=== PATIENT | male | born 1935 | race Caucasian/White ===

== ENCOUNTER 2019-04-26 10:10 | Outpatient (CLI) | payer MEDICARE, OTHER, SELFPAY ==
--- NOTE | 2019-04-26 10:18 | FL_ITS ---
WS: [id number] FL barium swallow modifd [id number] REASON FOR EXAM: Other dysphagia FLUOROSCOPY TIME: 3.7 minutes FINDINGS: Fluoroscopy was performed for speech pathology please see their workup for details. A trace of microaspiration was identified. FL/FL barium swallow modifd [id number] IMPRESSION: Trace of microaspiration.
== END 2019-04-26 10:11 | disposition home or self-care (01) ==
PROVIDERS: Family Provider Family Medicine; PCP Family Medicine; Visit Provider Family Medicine
DX: R13.10 Dysphagia, unspecified (principal)
CPT/HCPCS: 74230; 92611

== ENCOUNTER 2019-08-24 09:48 | Outpatient (RCR) | payer MEDICARE, OTHER, SELFPAY | END 2019-09-09 23:59 | disposition home or self-care (01) | LOC: SPT 09:48 | PROVIDERS: PCP Family Medicine; Visit Provider Family Medicine | DX: G89.29 Other chronic pain (principal); M25.512 Pain in left shoulder | CPT/HCPCS: 97110; 97161 ==

== ENCOUNTER 2019-09-10 06:00 | Outpatient (RCR) | payer MEDICARE, OTHER, SELFPAY | END 2019-10-10 23:59 | disposition home or self-care (01) | LOC: SPT 06:00 | PROVIDERS: PCP Family Medicine; Visit Provider Family Medicine | DX: G89.29 Other chronic pain (principal); M25.512 Pain in left shoulder | CPT/HCPCS: 97110 ==

== ENCOUNTER 2019-10-24 17:28 | Outpatient (RCR) | payer MEDICARE, OTHER, SELFPAY | END 2019-11-09 23:59 | disposition home or self-care (01) | LOC: SPT 17:28 | PROVIDERS: PCP Family Medicine; Visit Provider Family Medicine | DX: G89.29 Other chronic pain (principal); M25.512 Pain in left shoulder | CPT/HCPCS: 97110 ==

== ENCOUNTER 2019-11-10 06:00 | Outpatient (RCR) | payer MEDICARE, OTHER, SELFPAY | END 2019-12-10 23:59 | disposition home or self-care (01) | LOC: SPT 06:00 | PROVIDERS: PCP Family Medicine; Visit Provider Family Medicine | DX: G89.29 Other chronic pain (principal); M25.512 Pain in left shoulder | CPT/HCPCS: 97110 ==

== ENCOUNTER → 2020-01-24 07:49 | Outpatient (BNVA) | payer MEDICARE, OTHER, SELFPAY | PROVIDERS: PCP Family Medicine; Visit Provider Family Medicine | DX: I10 Essential (primary) hypertension (principal); E78.5 Hyperlipidemia, unspecified; R35.1 Nocturia | CPT/HCPCS: 80053; 80061; 84153; 85025 ==

== ENCOUNTER 2020-02-07 10:45 | Outpatient (CLI) | payer MEDICARE, OTHER, SELFPAY ==
--- NOTE | 2020-02-07 11:00 | USCV_ITS ---
Tarik Pink Age: 84 Gender: M : 1935 Exam Date: 02/07/2020 11:06 Ordering Phys: Maria Alejandra Bliss DO Technologist: Torie Alexander Exam Location: [facility] [place] Indication: SOB BP: 120 / 74 HR: 90 Rhythm: Sinus Technical Quality: Very technically difficult study MEASUREMENTS (Male / Female) Normal Values 2D ECHO LV Diastolic Diameter PLAX 4.0 cm 4.2 - 5.9 / 3.9 - 5.3 cm LV Systolic Diameter PLAX 2.5 cm LV Chamber Size 3.9 cm IVS Diastolic Thickness 1.5 cm 0.6 - 1.0 / 0.6 - 0.9 cm IVS Systolic Thickness 1.9 cm LVPW Diastolic Thickness 1.3 cm 0.6 - 1.0 / 0.6 - 0.9 cm LVPW Systolic Thickness 1.8 cm RV Chamber Size 2.5 cm LVOT Diameter 2.0 cm LV Ejection Fraction 2D Teich 66.5 % LV Ejection Fraction MOD 2C 70.8 % LV Ejection Fraction 2C AL 70.3 % LA Diameter 4.2 cm LA Width 4.1 cm LA Height 5.4 cm RA Width 3.5 cm RA Height 5.2 cm Aorta at Sinotubular Diameter 3.1 cm M-MODE LV Diastolic Diameter MM 5.5 cm 4.2 - 5.9 / 3.9 - 5.3 cm LV Systolic Diameter MM 4.9 cm LV Ejection Fraction MM Teich 23.8 % IVS Diastolic Thickness MM 1.1 cm 0.6 - 1.0 / 0.6 - 0.9 cm IVS Systolic Thickness MM 1.2 cm LVPW Diastolic Thickness MM 1.4 cm 0.6 - 1.0 / 0.6 - 0.9 cm LVPW Systolic Thickness MM 1.8 cm RV Diastolic Diameter MM 1.3 cm Aortic Annulus Diameter 4.2 cm LA Ao Ratio MM 1.2 MV E Point Septal Separation 1.0 cm DOPPLER AV Peak Velocity 177.0 cm/s LVOT Peak Velocity 81.3 cm/s AV Area Cont Eq vti 2.3 cm squared AV Area Cont Eq pk 1.5 cm squared MV Area PHT 5.0 cm squared Mitral E to A Ratio 0.5 MV E' Velocity 41.5 cm/s Mitral E to MV E' Ratio 11.5 Mitral E to LV E' Lateral Ratio 11.0 Mitral E to LV E' Septal Ratio 12.1 TR Peak Velocity 146.1 cm/s TR Peak Gradient 8.5 mmHg TR Mean Velocity 90.6 cm/s TR Mean Gradient 3.9 mmHg TR Velocity Time Integral 33.6 cm TV Peak E Velocity 69.0 cm/s Right Atrial Pressure 3.0 mmHg Pulmonary Artery Systolic Pressu 11.5 mmHg PV Peak Velocity 67.0 cm/s RV Acceleration Time 0.1 s RV Ejection Time 0.4 s RV AcT/ET 0.3 FINDINGS Left Ventricle Normal left ventricular cavity size. Low normal left ventricular systolic function. Left ventricular ejection fraction is estimated at 50-55 %. There is mild hypokinesis of apical septal wall. Global left ventricular hypokinesis. Grade I diastolic dysfunction (abnormal relaxation filling pattern), normal to mildly elevated filling pressures. Right Ventricle Normal right ventricular size and systolic function. Right ventricular systolic pressure 11.5 mmHg. Right Atrium Probably mildly increased right atrial size. Left Atrium Mildly increased left atrial size. Mitral Valve Moderate mitral annular calcification. Thickened mitral valve. No mitral valve stenosis. Mild mitral valve regurgitation. Aortic Valve Aortic valve not well visualized. No aortic valve stenosis. Trace aortic valve regurgitation. Tricuspid Valve Structurally normal tricuspid valve. Trace tricuspid valve regurgitation. Pulmonic Valve Pulmonic valve not well visualized. Pericardium No pericardial effusion. Aorta Normal size aortic root and proximal ascending aorta. Normal- sized inferior vena cava. CONCLUSIONS 1. This is a technically very difficult study. 2. Normal left ventricular cavity size. Low normal left ventricular systolic function. Left ventricular ejection fraction is estimated at 50-55 %. There is mild hypokinesis of apical septal wall. Global left ventricular hypokinesis. Grade I diastolic dysfunction (abnormal relaxation filling pattern), normal to mildly elevated filling pressures. 3. Normal right ventricular size and systolic function. 4. Mild mitral valve regurgitation. 5. When compared to previous echocardiogram dated 10/26/2017, left ventricular systolic function seems to have improved. Gay Vanegas MD (Electronically Signed) Final Date: 08 February 2020 20:18 S
== END 2020-02-07 10:46 | disposition home or self-care (01) ==
LOC: US 10:46
PROVIDERS: PCP Family Medicine; Visit Provider Family Medicine
DX: I34.0 Nonrheumatic mitral (valve) insufficiency (principal); R06.02 Shortness of breath
CPT/HCPCS: 93306

== ENCOUNTER → 2020-03-13 08:01 | Outpatient (BNVA) | payer MEDICARE, OTHER, SELFPAY | PROVIDERS: PCP Family Medicine; Visit Provider Family Medicine | DX: E78.5 Hyperlipidemia, unspecified (principal) | CPT/HCPCS: 80053 ==

== ENCOUNTER → 2020-04-12 08:00 | Outpatient (BNVA) | payer MEDICARE, OTHER, SELFPAY | PROVIDERS: PCP Family Medicine; Visit Provider Family Medicine | DX: E78.5 Hyperlipidemia, unspecified (principal); I10 Essential (primary) hypertension | CPT/HCPCS: 80061 ==

== ENCOUNTER → 2020-04-19 12:59 | Outpatient (BNVA) | payer MEDICARE, OTHER, SELFPAY | PROVIDERS: PCP Family Medicine; Visit Provider Nurse Practitioner Family | DX: Z01.812 Encounter for preprocedural laboratory examination (principal); Z20.828 Contact with and (suspected) exposure to other viral communicable diseases | CPT/HCPCS: 87635 ==

== ENCOUNTER → 2020-11-08 07:54 | Outpatient (BNVA) | payer MEDICARE, OTHER, SELFPAY | PROVIDERS: PCP Family Medicine; Visit Provider Family Medicine | DX: I10 Essential (primary) hypertension (principal); R35.1 Nocturia; E78.5 Hyperlipidemia, unspecified | CPT/HCPCS: 80053; 80061; 84153; 85025 ==

== ENCOUNTER → 2020-11-12 09:29 | Outpatient (BNVA) | payer MEDICARE, OTHER, SELFPAY | PROVIDERS: PCP Family Medicine; Visit Provider Family Medicine | DX: I10 Essential (primary) hypertension (principal); E74.39 Other disorders of intestinal carbohydrate absorption; E78.5 Hyperlipidemia, unspecified; Z79.899 Other long term (current) drug therapy | CPT/HCPCS: 83036; 85025 ==

== ENCOUNTER 2021-01-16 21:17 | Emergency (ER) | payer MEDICARE, OTHER, SELFPAY ==
--- NOTE | 2021-01-16 21:22 | ECG_ITS ---
[facility] Test Date: 2021-01-16 Pat Name: Tarik Pink Department: Room: Gender: Male [employer] Officer: : 1935 Requested By: Tamar Taylor Order Number: [id number] Khadar MD: Gay Vanegas M.D. Measurements Intervals [place] Rate: 118 P: -70 IA: 133 QRS: 89 QRSD: 115 T: 42 QT: 339 QTc: 476 Interpretive Statements SINUS TACHYCARDIA WITH OCCASIONAL VENTRICULAR PREMATURE COMPLEXES WITH OCCASIONAL SUPRAVENTRICULAR PREMATURE COMPLEXES MODERATE INTRAVENTRICULAR CONDUCTION DELAY [110+ ms QRS DURATION] No previous ECG available for comparison Electronically Signed On 01-17-2021 4:15:10 HOT STAMP OPERATOR by Gay Vanegas M.D. [id number]
[2021-01-16 21:40] VITALS: BP 105/52; PULSE 132; RESP 19; TEMP 37.1; O2SAT 93; BMI 32.3
--- NOTE | 2021-01-16 21:45 | CTR_ITS ---
PROCEDURE INFORMATION: Exam: CT Head Without Contrast Exam date and time: 01/16/2021 9:45 PM Age: 85 years old Clinical indication: Pain and injury or trauma; Fall; Abrasion and blunt trauma (contusions or hematomas); Forehead; Patient HX: Patient passed out on the toilet straining from a painful bm and fell striking head onto floor. Large abrasion to RT frontal region. C/O headache. Patient states his bm was full of blood. C/O abdominal discomfort. TECHNIQUE: Imaging protocol: Computed tomography of the head without contrast. Total images: 210 Radiation optimization: All CT scans at this facility use at least one of these dose optimization techniques: automated exposure control; mA and/or kV adjustment per patient size (includes targeted exams where dose is matched to clinical indication); or iterative reconstruction. COMPARISON: XA FL barium swallow modifd [id number] 04/26/2019 11:37 AM RADIATION DOSE METRICS: Total DLP (mGy-cm): 949.04 FINDINGS: Brain: No evidence of acute intracranial pathologic process, hemorrhage, or trauma. No visible cerebral edema. 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 Evidence of tiny micro antecedent basal ganglia lacunar infarctions. Antecedent lacunar infarction anterior limb left external capsule. Antecedent lacunar infarctions of the deep white matter centrum semi ovale. Cerebral arteriosclerosis. No hyperdense MCA or insular ribbon sign. No mass effect. No midline shift. Advanced cerebral and cerebellar atrophy with ventricular dilatation greater than that anticipated for patient's chronological age. Cerebral ventricles: No ventriculomegaly. Paranasal sinuses: Visualized sinuses are unremarkable. No fluid levels. Mastoid air cells: Visualized mastoid air cells are well aerated. Bones/joints: Vertebral dolichoectasia. Soft tissues: Unremarkable. CT/CT head wo con* [id number] IMPRESSION: No evidence of acute intracranial pathologic process, hemorrhage, or trauma.
--- NOTE | 2021-01-16 21:58 | ED_ITS ---
HPI - Syncope General: Chief Complaint: Syncope Stated Complaint: BM Blood\Passed Out Time Seen by Provider: 01/16/21 21:30 Source: patient Mode of arrival: ambulatory Limitations: no limitations History of Present Illness: HPI narrative: 85-year-old male who states that he was on the toilet roughly an hour ago and had a large bloody bowel movement. States he felt lightheaded and passed out states he passed out for about 10 to 15 minutes he did strike his head on the floor when he passed out has abrasion to his right head states the bleeding is slowed but still having some bright red blood he states he had an upper GI bleed a few years back denies any vomiting or diarrhea denies any worsening improving factors. He is not on any blood thinners Associated symptoms: Deny fever(s) or headache(s) Review of Systems Const: Denies: fever(s), chills, body aches or change in appetite Eyes: Denies: blurry vision or eye discomfort ENMT: Denies: throat pain or dental pain Card: Reports: syncope Resp: Denies: dyspnea GI: Reports: hematochezia : Denies: dysuria Musc: Denies: neck pain or back pain Skin/Breast: Denies: rash Neuro: Denies: headache(s) Psych: Denies: depression Marvin/Lymph: Denies: easy bruising All/Imm: Denies: urticaria PFSH ED PFSH: Medical History (Updated 01/17/21 @ 02:01 by Tamar Taylor MD) Enrolled in chronic care management H/O [place] spotted fever Hyperlipidemia Hypertension Mitral regurgitation Prediabetes Surgical History H/O cataract extraction No pertinent past surgical history Family History Other CAD (coronary artery disease) Cancer Social History Smoking and tobacco status: former smoker Alcohol intake: current Alcohol intake frequency: few times a week Alcohol type: beer Lives independently: Yes Household members: spouse Marital status: Current occupational status: retired Current gender identity: Male Physical Exam Const: COMMON NORMALS: no acute distress, patient oriented x3 and healthy appearing HENMT: COMMON NORMALS: normocephalic HEAD & SCALP: normocephalic OTHER: abrasion to right forehead Eye: COMMON NORMALS: Equal, round and reactive pupils present and EOMs intact bilaterally PUPIL: Yes Equal, round and reactive pupils present Neck/C-Spine: COMMON NORMALS: full ROM and supple Chest: COMMONS NORMALS: normal inspection of the chest and normal palpation of entire chest wall Resp: COMMON NORMALS: normal respiratory effort, No retractions, No use of accessory muscles and clear to auscultation bilaterally AUSCULTATION: clear to auscultation bilaterally Cardio: COMMON NORMALS: regular rate, regular rhythm and No murmurs present (Cardio) RATE: regular rate RHYTHM: regular rhythm GI: COMMON NORMALS: Normal to inspection, nondistended, normoactive bowel sounds present, Soft to palpation, non-tender and no masses PALPATION: Yes Soft to palpation OTHER: Hemoccult positive with slight bright red blood Extremity: COMMON NORMALS: normal to inspection and full ROM Neuro: COMMON NORMALS: patient oriented x3, moves all extremities and no focal motor deficits Psych: COMMON NORMALS: mental status grossly normal, Normal thought process present and cooperative THOUGHT PROCESS: Normal thought process present Skin: COMMON NORMALS: no rashes or lesions noted and no wounds GENERAL SKIN EXAM: no rashes or lesions noted Course Vital Signs: Vital signs: Vital Signs Temperature 98.7 F 01/17/21 03:06 Pulse Rate 112 H 01/17/21 05:04 Respiratory Rate 16 01/17/21 01:47 Blood Pressure 106/78 01/17/21 05:04 Pulse Oximetry 93 01/17/21 05:04 MDM - Syncope MDM Narrative: Medical decision making narrative: Patient presents here with lower GI bleeding and a large bloody bowel movement at home and another large bloody bowel movement here he had a syncopal event at home here he gets orthostatic with standing blood pressure dropped to 83/56 with standing here and had a near syncopal event with diaphoresis patient's hemoglobin dropped from 15- 12.4 will transfuse him [address] shows active bleeding will transfer to [facility] for higher level of care with GI capability and also bed availability as we have no ICU beds. Pt transfered to [facility] Lab Data: Labs: Lab Results 01/16/21 01/16/21 01/16/21 21:26 22:06 22:06 WBC 20.5 10^3/uL H 10 ^3/uL (4.0-10.0) RBC 5.11 10^6/uL 10^6 /uL (4.1-5.3) Hgb 15.0 g/dL g/dL (11.7-16.6) Hct 47.5 % % (42.0-52.0) MCV 93.0 fl fl (80-94) MCH 29.4 pg pg (28.0-34.0) MCHC 31.6 g/dL g/dL (30.0-36.0) RDW 13.9 % % (12.1-15.1) Plt Count 246 10^3/cmm 10^3 /cmm (130-400) MPV 10.0 fL fL (7.4-10.4) Neut % (Auto) 78.8 % % Lymph % (Auto) 12.5 % % [place] % (Auto) 7.2 % % Eos % (Auto) 0.6 % % Baso % (Auto) 0.5 % % Neut # (Auto) 16.10 10^3/uL H 1 0^3/uL (1.8-7.7) Lymph # (Auto) 2.6 10^3/uL 10^3/ uL (0.8-4.8) [place] # (Auto) 1.5 10^3/uL H 10^ 3/uL (0.2-0.9) Eos # (Auto) 0.1 10^3/uL 10^3/ uL (0.0-0.8) Baso # (Auto) 0.1 10^3/uL 10^3/ uL (0.0-0.1) Nucleated RBC % (a uto) 0 % % Nucleated RBCs # 0.0 /100WBC /100W BC PT 14.30 SECONDS SEC ONDS (12.1-14.9) INR 1.07 (0.8-1.2) Specimen Type Sample Site ABG pH ABG pCO2 ABG pO2 ABG HCO3 ABG Base Excess Issa Test Hematocrit O2 Delivery Device Chemistry Physics Teacher ID Sodium Potassium Chloride Carbon Dioxide Anion Gap BUN Creatinine GFR Calculation Glucose Calculated Osmolal ity Lactate Calcium Total Bilirubin AST ALT Alkaline Phosphata se Total Protein Albumin Globulin Blood Type O Negative Rho(D) Type Negative Antibody Screen Negative Crossmatch See Detail 01/16/21 01/16/21 01/16/21 22:06 23:45 23:45 WBC RBC Hgb 12.4 g/dL g/dL (11.7-16.6) Hct 38.0 % L % (42.0-52.0) MCV MCH MCHC RDW Plt Count MPV Neut % (Auto) Lymph % (Auto) [place] % (Auto) Eos % (Auto) Baso % (Auto) Neut # (Auto) Lymph # (Auto) [place] # (Auto) Eos # (Auto) Baso # (Auto) Nucleated RBC % (a uto) Nucleated RBCs # PT INR Specimen Type Sample Site ABG pH ABG pCO2 ABG pO2 ABG HCO3 ABG Base Excess Issa Test Hematocrit O2 Delivery Device Chemistry Physics Teacher ID Sodium 138 mmol/L mmol/L (136-145) Potassium 4.4 mmol/L mmol/L (3.5-5.1) Chloride 103 mmol/L mmol/L (98-107) Carbon Dioxide 25 mmol/L mmol/L (22-29) Anion Gap 14.4 (5-19) BUN 21 mg/dL mg/dL (8-23) Creatinine 1.2 mg/dL mg/dL (0.7-1.2) GFR Calculation Not Reportable Glucose 174 mg/dL H mg/dL (65-115) Calculated Osmolal ity 293 mOsm/kg mOsm/ kg (285-295) Lactate 3.0 mmol/L H mmol /L (0.5-2.2) Calcium 8.3 mg/dL L mg/dL (8.5-10.5) Total Bilirubin 0.2 mg/dL mg/dL (0.15-1.2) AST 20 U/L U/L (0-40) ALT < 5 U/L U/L (0-41) Alkaline Phosphata se 56 IU/L IU/L (40-130) Total Protein 6.4 g/dL L g/dL (6.6-8.7) Albumin 3.5 g/dL g/dL (3.5-5.2) Globulin 2.9 g/dL g/dL (1.3-4.6) Blood Type Rho(D) Type Antibody Screen Crossmatch 01/17/21 01/17/21 02:11 02:59 WBC RBC Hgb 14.4 g/dL g/dL (11.7-16.6) Hct 43.9 % % (42.0-52.0) MCV MCH MCHC RDW Plt Count MPV Neut % (Auto) Lymph % (Auto) [place] % (Auto) Eos % (Auto) Baso % (Auto) Neut # (Auto) Lymph # (Auto) [place] # (Auto) Eos # (Auto) Baso # (Auto) Nucleated RBC % (a uto) Nucleated RBCs # PT INR Specimen Type Arterial Sample Site Radial, right ABG pH 7.41 (7.35-7.45) ABG pCO2 38.5 mmHg mmHg (35-45) ABG pO2 68.0 mmHg L mmHg (80.0-100.0) ABG HCO3 24.5 mmol/L mmol/ L (22-26) ABG Base Excess 0.0 mmol/L mmol/L (-2.0-2.0) Issa Test Pos Hematocrit 40.6 % L % (42-52) O2 Delivery Device Room air Chemistry Physics Teacher ID Buttr Sodium Potassium Chloride Carbon Dioxide Anion Gap BUN Creatinine GFR Calculation Glucose Calculated Osmolal ity Lactate Calcium Total Bilirubin AST ALT Alkaline Phosphata se Total Protein Albumin Globulin Blood Type Rho(D) Type Antibody Screen Crossmatch Imaging Data^: CT Head: Radiologist's impression: [employer] [address] [address] Scan Report Signed with Addenda Patient: Tarik Pink Unit #: [id number] : 1935 Age/Sex: 85 / M ADM Date: 01/16/21 Loc: ER Room/Bed: Attending Dr: Ordering Provider/Ordering MD: Tamar Taylor MD Date of Service: 01/16/21 Procedure(s): CT head wo con* [id number] Accession Number(s): [id number] Report Number: [id number]/CT head wo con* [id number] Bones/joints: No visible fracture. Vertebral artery dolichoectasia. Addendum Dictated By: Nolberto Shirley Addendum Signed By: Nolberto Shirley Signed Date/Time: 01/16/21 232 9 Addendum Cosigned By: PROCEDURE INFORMATION: Exam: CT Head Without Contrast Exam date and time: 01/16/2021 9:45 PM Age: 85 years old Clinical indication: Pain and injury or trauma; Fall; Abrasion and blunt trauma (contusions or hematomas); Forehead; Patient HX: Patient passed out on the toilet straining from a painful bm and fell striking head onto floor. Large abrasion to RT frontal region. C/O headache. Patient states his bm was full of blood. C/O abdominal discomfort. TECHNIQUE: Imaging protocol: Computed tomography of the head without contrast. Total images: 210 Radiation optimization: All CT scans at this facility use at least one of these dose optimization techniques: automated exposure control; mA and/or kV adjustment per patient size (includes targeted exams where dose is matched to clinical indication); or iterative reconstruction. COMPARISON: XA FL barium swallow modifd [id number] 04/26/2019 11:37 AM RADIATION DOSE METRICS: Total DLP (mGy-cm): 949.04 FINDINGS: Brain: No evidence of acute intracranial pathologic process, hemorrhage, or trauma. No visible cerebral edema. 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 Evidence of tiny micro antecedent basal ganglia lacunar infarctions. Antecedent lacunar infarction anterior limb left external capsule. Antecedent lacunar infarctions of the deep white matter centrum semi ovale. Cerebral arteriosclerosis. No hyperdense MCA or insular ribbon sign. No mass effect. No midline shift. Advanced cerebral and cerebellar atrophy with ventricular dilatation greater than that anticipated for patient's chronological age. Cerebral ventricles: No ventriculomegaly. Paranasal sinuses: Visualized sinuses are unremarkable. No fluid levels. Mastoid air cells: Visualized mastoid air cells are well aerated. Bones/joints: Vertebral dolichoectasia. Soft tissues: Unremarkable. CT/CT head wo con* [id number] IMPRESSION: No evidence of acute intracranial pathologic process, hemorrhage, or trauma. Dictated By: Nolberto Shirley Signed By: Nolberto Shirley Signed Date/Time: 01/16/218 DD/ 44 CXR: Attestation: I personally reviewed and interpreted this imaging study as follows: Radiologist's impression: [facility] [address] [place] [address] XRay Report Signed with Addenda Patient: Tarik Pink Unit #: [id number] : 1935 804 Age/Sex: 85 / M ADM Date: 01/16/21 Loc: ER Room/Bed: Attending Dr: Ordering Provider/Ordering MD: Tamar Taylor MD Date of Service: 01/16/21 Procedure(s): XR chest 1V portable [id number] Accession Number(s): [id number] Report Number: [id number] ADDENDUM XR/XR chest 1V portable [id number] Impression should read as follows: Grossly nonacute. Addendum Dictated By: Nolberto Shirley Addendum Signed By: Nolberto Shirley Signed Date/Time: 01/16/21 225 8 Addendum Cosigned By: Nonacute. PROCEDURE INFORMATION: Exam: XR Chest Exam date and time: 01/16/2021 10:20 PM Age: 85 years old Clinical indication: Other: Syncope TECHNIQUE: Imaging protocol: XR of the chest. Views: 1 view. Total images: 1 COMPARISON: CR Shoulder 2+ views RIGHT* [id number] 01/30/2016 10:59 AM FINDINGS: Lungs: No grossly visible active interstitial or alveolar airspace disease. Pleural spaces: No grossly visible pleural effusion or pneumothorax. Heart/Mediastinum: Cardiomegaly. Arteriosclerosis. 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 Mild scoliotic curvature of the spine. Other findings: Limited diagnostic quality examination. XR/XR chest 1V portable [id number] IMPRESSION: Grossly Dictated By: Nolberto Shirley Signed By: Nolberto Shirley Signed Date/Time: 01/16/212257 DD/ 19 CT Abd/Pel: Radiologist's impression: [address] [place] [address] CT Scan Report Signed Patient: Tarik Pink Unit #: [id number] : 1935 [id number] Age/Sex: 85 / M ADM Date: 09/29 Loc: ER Room/Bed: Attending Dr: Ordering Provider/Ordering MD: Tamar Taylor MD Date of Service: 01/16/21 Procedure(s): CT abdomen pelvis w con* [id number] Accession Number(s): [id number] Report Number: [id number] PROCEDURE INFORMATION: Exam: CT Abdomen And Pelvis With Contrast Exam date and time: 01/16/2021 9:59 PM Age: 85 years old Clinical indication: Other: Bloody stools; Abdominal pain; Generalized; Patient HX: Patient passed out on the toilet straining from a painful bm and fell striking head onto floor. Large abrasion to RT frontal region. C/O headache. Patient states his bm was full of blood. C/O abdominal discomfort. ; Additional info: Abd pain TECHNIQUE: Imaging protocol: Computed tomography of the abdomen and pelvis with contrast. Radiation optimization: All CT scans at this facility use at least one of these dose optimization techniques: automated exposure control; mA and/or kV adjustment per patient size (includes targeted exams where dose is matched to clinical indication); or iterative reconstruction. Contrast material: VISI 320; Contrast volume: 95 ml; Contrast route: INTRAVENOUS (IV); COMPARISON: CR (CHEST, ) 01/16/2021 10:28 PM RADIATION DOSE METRICS: Total DLP (mGy-cm): 1939.37 FINDINGS: Heart: Moderate calcified coronary artery disease. Liver: Normal. No mass. Gallbladder and bile ducts: Normal. No calcified stones. No ductal dilation. Pancreas: Normal. No ductal dilation. Spleen: Calcified splenic granulomas. Adrenal glands: Normal. No mass. Kidneys and ureters: Normal. No hydronephrosis. Stomach and bowel: Active bleeding in the descending colon with the active bleeding identified over an 11 cm segment of bowel. The bleeding may originate within a posterior diverticulum in the proximal descending colon, axial series 2, image 45, sagittal series 601, image 16. Appendix: No evidence of appendicitis. Intraperitoneal space: Unremarkable. No free air. No significant fluid collection. Vasculature: Calcification of the thoracic aorta and/or great vessels consistent with atherosclerotic vessel disease. Calcification of the abdominal aorta and/or iliac arteries consistent with atherosclerotic vessel disease. Lymph nodes: Unremarkable. No enlarged lymph nodes. Urinary bladder: Unremarkable as visualized. Reproductive: Unremarkable as visualized. Bones/joints: Severe multilevel spine degenerative changes including degenerative disc disease, spondylosis and facet degenerative changes. Soft tissues: Unremarkable. Other findings: Moderate diverticulosis. CT/CT abdomen pelvis w con* [id number] IMPRESSION: Active bleeding in the descending colon with the active bleeding identified over an 11 cm segment of bowel. The bleeding may originate within a posterior diverticulum in the proximal descending colon, axial series 2, image 45, sagittal series 601, image 16. Dictated By: Yifan Parsons MD Signed By: Yifan Parsons MD Signed Date/Time: 01/16/21 2333 DD/ 58 EKG Data^: EKG 1: Attestation: I personally reviewed and interpreted this EKG as follows: EKG interpretation date: 01/16/21 EKG interpretation time: 21:37 Interpretation: sinus tach hr [address] or t wave abnormalities qrs 115 qtc 49 Critical Care Time Critical Care Time: Critical Care Time: Yes Total Critical Care Time: 36 Attestation: The high probability of a clinically significant, sudden or life threatening deterioration of the patient's [] system(s) required my full and direct attention, intervention and personal management. The critical care time is as shown. This time is in addition to time spent performing any reported procedures but includes the following: [x] Data and vital sign review and interpretation [x] Patient assessment, examination and intervention [x] Documentation [x] Medication orders and management Discharge Plan Discharge Patient Disposition: Xfer Short-Term Hosp Clinical Impression: Acute lower gastrointestinal bleeding, Syncope Condition: Stable Referrals: Maria Alejandra Bliss DO [Primary Care Provider] - Coding Level of Care Code ED Salesperson [employer] for Chg Fwd Exam Comprehensive
[2021-01-16 22:13] VITALS: BP 88/71; PULSE 111; O2SAT 95
[2021-01-16] MEDS: lactated ringers 1,000 ML 999 ML IV (22:16)
[2021-01-16 22:19] LABS: Basophils # 0.1 10^3/uL (0.0-0.1); Basophils % 0.5 %; Eosinophils # 0.1 10^3/uL (0.0-0.8); Eosinophils % 0.6 %; Hematocrit 47.5 % (42.0-52.0); Lymphocytes # 2.6 10^3/uL (0.8-4.8); Lymphocytes % 12.5 %; Mean Corpuscular HGB Conc 31.6 g/dL (30.0-36.0); Mean Corpuscular Hemoglobin 29.4 pg (28.0-34.0); Monocytes # 1.5 10^3/uL (0.2-0.9); Monocytes % 7.2 %; Neutrophils % 78.8 %; Nucleated Red Blood Cells % 0 %; Platelet Count 246 10^3/cmm (130-400); Red Blood Count 5.11 10^6/uL (4.1-5.3); Red Cell Distribution Width 13.9 % (12.1-15.1); White Blood Count 20.5 10^3/uL (4.0-10.0)
--- NOTE | 2021-01-16 22:20 | XRR_ITS ---
Nonacute. PROCEDURE INFORMATION: Exam: XR Chest Exam date and time: 01/16/2021 10:20 PM Age: 85 years old Clinical indication: Other: Syncope TECHNIQUE: Imaging protocol: XR of the chest. Views: 1 view. Total images: 1 COMPARISON: CR Shoulder 2+ views RIGHT* [id number] 01/30/2016 10:59 AM FINDINGS: Lungs: No grossly visible active interstitial or alveolar airspace disease. Pleural spaces: No grossly visible pleural effusion or pneumothorax. Heart/Mediastinum: Cardiomegaly. Arteriosclerosis. 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 Mild scoliotic curvature of the spine. Other findings: Limited diagnostic quality examination. XR/XR chest 1V portable [id number] IMPRESSION: Grossly
[2021-01-16 22:33] LABS: INR 1.07 (0.8-1.2)
[2021-01-16 22:39] LABS: Alanine Aminotransferase < 5 U/L (0-41); Albumin Level 3.5 g/dL (3.5-5.2); Alkaline Phosphatase 56 IU/L (40-130); Anion Gap 14.4 (5-19); Aspartate Amino Transferase 20 U/L (0-40); Blood Urea Nitrogen 21 mg/dL (8-23); Calcium 8.3 mg/dL (8.5-10.5); Carbon Dioxide 25 mmol/L (22-29); Chloride 103 mmol/L (98-107); Globulin 2.9 g/dL (1.3-4.6); Glucose 174 mg/dL (65-115); Osmolality Calculated 293 mOsm/kg (285-295); Potassium 4.4 mmol/L (3.5-5.1); Sodium 138 mmol/L (136-145); Total Bilirubin 0.2 mg/dL (0.15-1.2); Total Protein 6.4 g/dL (6.6-8.7)
[2021-01-16] MEDS: iodixanol 320 mg/mL 100mL Btl IV (22:54)
[2021-01-16 23:54] VITALS: BP 128/90; PULSE 116; O2SAT 93
[2021-01-17] VITALS (17 sets, daily range): BP systolic 106–146; BP diastolic 75–118; PULSE 103–115; RESP 16; TEMP 36.7–37.1; O2SAT 93–97
[2021-01-17 00:29] LABS: Hemoglobin 12.4 g/dL (11.7-16.6)
[2021-01-17 02:23] LABS: ABG PCO2 38.5 mmHg (35-45); ABG PH Result 7.41 (7.35-7.45); Arterial Blood Gas Hematocrit 40.6 % (42-52); Blood Gas Allen Test Pos; Blood Gas Sample Site Radial, right; Blood Gas Sample Type Arterial; HCO3 ABG 24.5 mmol/L (22-26); Oxygen Device ROOM AIR
[2021-01-17] MEDS: sodium chloride 0.9% 50 ML IV (02:42)
[2021-01-17 03:05] LABS: Hematocrit 43.9 % (42.0-52.0); Hemoglobin 14.4 g/dL (11.7-16.6)
== END 2021-01-17 06:19 | disposition short-term general hospital (02) ==
PROVIDERS: Emergency Provider Emergency Medicine; PCP Family Medicine
DX: R55 Syncope and collapse (principal); K92.2 Gastrointestinal hemorrhage, unspecified; E78.5 Hyperlipidemia, unspecified; I10 Essential (primary) hypertension
CPT/HCPCS: 36415; 36430; 36600; 70450; 71045; 74177; 80053; 82803; 83605; 85014; 85018; 85025; 85610; 86850; 86900; 86920; 87040; 93005; 96360; 96361; 99291; P9016; Q9967

== ENCOUNTER → 2021-02-19 13:48 | Outpatient (BNVA) | payer MEDICARE, OTHER, SELFPAY | PROVIDERS: PCP Family Medicine; Visit Provider Family Medicine | DX: K92.2 Gastrointestinal hemorrhage, unspecified (principal) | CPT/HCPCS: 85025 ==

== ENCOUNTER → 2021-10-02 12:49 | Outpatient (BNVA) | payer MEDICARE, OTHER, SELFPAY | PROVIDERS: PCP Family Medicine; Visit Provider Internal Medicine | DX: I10 Essential (primary) hypertension (principal); I34.0 Nonrheumatic mitral (valve) insufficiency; E78.5 Hyperlipidemia, unspecified; E74.39 Other disorders of intestinal carbohydrate absorption; Z87.891 Personal history of nicotine dependence | CPT/HCPCS: 99214 ==

== ENCOUNTER → 2022-01-14 10:00 | Outpatient (BNVA) | payer MEDICARE, OTHER, SELFPAY | PROVIDERS: PCP Family Medicine; Visit Provider Family Medicine | DX: I10 Essential (primary) hypertension (principal); R73.03 Prediabetes; E78.5 Hyperlipidemia, unspecified; E78.2 Mixed hyperlipidemia | CPT/HCPCS: 80053; 80061; 83036; 85025 ==

== ENCOUNTER → 2022-04-03 14:58 | Outpatient (BNVA) | payer MEDICARE, OTHER, SELFPAY | PROVIDERS: PCP Family Medicine; Visit Provider Internal Medicine | DX: I10 Essential (primary) hypertension (principal); E74.39 Other disorders of intestinal carbohydrate absorption; E78.2 Mixed hyperlipidemia; I34.0 Nonrheumatic mitral (valve) insufficiency; Z87.891 Personal history of nicotine dependence | CPT/HCPCS: 99214 ==

== ENCOUNTER → 2022-07-15 09:25 | Outpatient (BNVA) | payer MEDICARE, OTHER, SELFPAY | PROVIDERS: PCP Family Medicine; Visit Provider Family Medicine | DX: I10 Essential (primary) hypertension (principal); R06.09 Other forms of dyspnea | CPT/HCPCS: 80053; 83880 ==

== ENCOUNTER 2022-08-04 13:55 | Outpatient (CLI) | payer MEDICARE, OTHER, SELFPAY ==
--- NOTE | 2022-08-04 14:15 | USCV_ITS ---
Tarik Pink Age: 87 Gender: M : 1935 Exam Date: 08/04/2022 14:34 Ordering Phys: Maria Alejandra Bliss DO Technologist: CT Exam Location: [facility] [place] Indication: mr BP: 116 / 74 HR: 75 Rhythm: Sinus Technical Quality: Adequate MEASUREMENTS (Male / Female) Normal Values 2D ECHO LVOT Diameter 2.3 cm LV Ejection Fraction MOD 2C 42.6 % LV Ejection Fraction 2C AL 39.3 % LA Diameter 4.9 cm Aorta at Sinotubular Diameter 2.5 cm IVC Diameter 2.3 cm M-MODE Aortic Annulus Diameter 4.0 cm LA Ao Ratio MM 1.4 DOPPLER AV Peak Velocity 157.0 cm/s LVOT Peak Velocity 110.0 cm/s AV Area Cont Eq vti 3.6 cm squared AV Area Cont Eq pk 2.9 cm squared MV Peak Velocity 136.0 cm/s MV Area PHT 2.7 cm squared MV E' Velocity 67.0 cm/s Mitral E to MV E' Ratio 12.6 Mitral E to LV E' Lateral Ratio 13.1 Mitral E to LV E' Septal Ratio 12.2 TR Peak Velocity 131.0 cm/s TR Peak Gradient 6.9 mmHg TV Peak E Velocity 79.0 cm/s Right Atrial Pressure 5.0 mmHg Pulmonary Artery Systolic Pressu 11.9 mmHg FINDINGS Left Ventricle Normal left ventricular size and systolic function, EF 55 %. (visual). No regional wall motion abnormalities. Right Ventricle The right ventricle is normal in size and function. Right Atrium Mildly increased right atrial size. Left Atrium Mildly increased left atrial size. Mitral Valve Thickened mitral valve. Moderate mitral annular calcification. Aortic Valve Thickened aortic valve. Tricuspid Valve No gross abnormalities noted Pulmonic Valve Pulmonic valve not well visualized. Pericardium Normal pericardium without effusion. Aorta Normal aortic annulus size. IVC The inferior vena cava appears normal. CONCLUSIONS Normal left ventricular size and systolic function, EF 55 %. (visual). No regional wall motion abnormalities. Possible biatrial enlargement. Thickened mitral valve. Moderate mitral annular calcification. Thickened aortic valve with features of aortic valve sclerosis There is no pericardial effusion. There are no intracardiac masses. Technically difficult study because of the poor ultrasonic window. Comparison with the previous study is difficult because of the difference in the technical quality. Dr Willis Huber MD FACC (Electronically Signed) Final Date: 08 August 2022 19:46 S
== END 2022-08-04 13:56 | disposition home or self-care (01) ==
PROVIDERS: PCP Family Medicine; Visit Provider Family Medicine
DX: I34.0 Nonrheumatic mitral (valve) insufficiency (principal); I35.8 Other nonrheumatic aortic valve disorders
CPT/HCPCS: 93306

== ENCOUNTER → 2022-10-21 14:47 | Outpatient (BNVA) | payer MEDICARE, OTHER, SELFPAY | PROVIDERS: PCP Family Medicine; Visit Provider Internal Medicine | DX: I10 Essential (primary) hypertension (principal); E74.39 Other disorders of intestinal carbohydrate absorption; E78.2 Mixed hyperlipidemia; I34.0 Nonrheumatic mitral (valve) insufficiency; Z87.891 Personal history of nicotine dependence; R06.00 Dyspnea, unspecified | CPT/HCPCS: 99214 ==

== ENCOUNTER → 2023-01-19 15:29 | Outpatient (BNVA) | payer MEDICARE, OTHER, SELFPAY | PROVIDERS: PCP Family Medicine; Visit Provider Family Medicine | DX: I10 Essential (primary) hypertension (principal); Z13.6 Encounter for screening for cardiovascular disorders; R73.03 Prediabetes; R35.1 Nocturia | CPT/HCPCS: 80053; 80061; 83036; 84153; 85025 ==

== ENCOUNTER 2023-04-12 12:31 | Emergency (ER) | payer MEDICARE, OTHER, SELFPAY ==
[2023-04-12 13:31] VITALS: BP 148/66; PULSE 81; RESP 16; TEMP 36.9; O2SAT 91; BMI 32.3
--- NOTE | 2023-04-12 13:46 | XRR_ITS ---
PROCEDURE INFORMATION: Exam: XR Chest Exam date and time: 04/12/2023 2:00 PM Age: 87 years old Clinical indication: Cough and shortness of breath; Patient HX: Cough; Chest congestion; Ex smoker TECHNIQUE: Imaging protocol: Radiologic exam of the chest. Views: 2 views. COMPARISON: CR XR chest 1V portable [id number] 01/16/2021 10:28 PM FINDINGS: Lungs: No consolidation. Pleural spaces: No pleural effusion. No pneumothorax. Heart/Mediastinum: No cardiomegaly. Bones/joints: Visualized osseous structures are intact. XR/XR chest 2V* [id number] IMPRESSION: No acute findings.
--- NOTE | 2023-04-12 13:46 | W.ED.URI ---
HPI - URI/Sore Throat General: Chief Complaint: Upper Respiratory Infection Stated Complaint: cough, chest cold? Time Seen by Provider: 04/12/23 13:38 History of Present Illness: 87-year-old male patient comes in with persistent cough and chest tightness for the last 3 weeks. Patient states that about 3 weeks ago he thinks he might run a fever and had a mild infection at this time. Since then patient has had a persistent dry cough with occasional phlegm production. Patient appears nontoxic. Skin is color is pink warm and dry. Patient takes carvedilol and lisinopril routinely for high blood pressure and arrhythmia. Spouse believes his atrial fibs. Patient is hard of hearing and spouse answers plenty of questions for him. Review of Systems General: Reports: 10 or more systems reviewed and unremarkable except in HPI and below Resp: Reports: non-productive cough PFSH ED PFSH: Medical History Lower GI bleed Prediabetes Mitral regurgitation H/O [place] spotted fever Hyperlipidemia Enrolled in chronic care management Hypertension Surgical History H/O cataract extraction No pertinent past surgical history Family History Other CAD (coronary artery disease) Cancer Social History Smoking and tobacco/nicotine status: former use of tobacco/nicotine Alcohol intake: current Alcohol intake frequency: few times a week Alcohol type: beer Substance/Drug Use: never Lives independently: Yes Household members: spouse Marital status: Current occupational status: retired Do you think of yourself as: Straight/Heterosexual Current gender identity: Male Physical Exam Const: COMMON NORMALS: alert HENMT: COMMON NORMALS: normocephalic HEAD & SCALP: normocephalic NOSE: Normal nares present THROAT: posterior oropharynx normal Neck/C-Spine: COMMON NORMALS: full ROM Chest: COMMONS NORMALS: normal inspection of the chest and normal palpation of entire chest wall Resp: COMMON NORMALS: normal respiratory effort and clear to auscultation bilaterally AUSCULTATION: clear to auscultation bilaterally Cardio: COMMON NORMALS: regular rate and regular rhythm RATE: regular rate RHYTHM: regular rhythm GI: COMMON NORMALS: Soft to palpation and non-tender PALPATION: Yes Soft to palpation Back/Pelvis: COMMON NORMALS: thoracic and lumbar spine normal to inspection Extremity: COMMON NORMALS: no pedal edema Neuro: SENSORIUM/ORIENTATION: Yes alert Skin: COMMON NORMALS: turgor normal GENERAL SKIN EXAM: turgor normal Course Vital Signs: Vital signs: Vital Signs Temperature 98.5 F 04/12/23 13:31 Pulse Rate 73 04/12/23 15:26 Respiratory Rate 18 04/12/23 15:26 Blood Pressure 148/66 04/12/23 13:31 Pulse Oximetry 94 04/12/23 15:26 Oxygen Delivery Me thod Room Air 04/12/23 13:31 MDM - URI/Sore Throat Medical Decision Making 87-year-old male patient comes in with a occasional nonproductive cough for the last 3 weeks. Patient reports he might run a fever when this illness started. Since then patient has had some chest discomfort with cough. Patient reports occasional cough up some phlegm. Patient appears nontoxic. Skin is warm and dry color is pink. Vital signs are normal except for some mild elevation of blood pressure of 148 systolic. Differential diagnosis includes but not limited to pneumonia, postviral cough, bronchitis. X-ray noted no significant abnormalities. Patient was given 10 mg dexamethasone for treatment of bronchitis. Patient was also started on doxycycline for antibiotic coverage. Patient and spouse both reported understanding of care plan and need for follow-up or return to the ER. Lab Data Radiology Impressions Chest X-Ray 04/12/23 13:46 IMPRESSION: No acute findings. All radiology interpretation(s) finalized by discharge Discharge Plan Discharge Patient Disposition: Home Clinical Impression: Bronchitis Condition: Stable Prescriptions: New doxycycline hyclate 100 mg capsule 100 mg PO BID 7 Days Qty: 14 0RF No Action Ultra CoQ10 75 mg capsule 75 mg PO DAILY multivitamin Tablet 1 tab PO DAILY diclofenac sodium [Voltaren] 1 % gel 2 gm TOPICAL QID Qty: 100 2RF Rx Instructions: to left shoulder atorvastatin 40 mg tablet 40 mg PO DAILY Qty: 90 1RF carvedilol 3.125 mg tablet 3.125 mg PO BID Qty: 180 3RF lisinopril-hydrochlorothiazide 20-25 mg tablet 1 tab PO QDAY Qty: 90 1RF Discharge Orders: Discharge ED (Routine); Ordered 04/12/23 Ordered By: Berny Ward Referrals: Maria Alejandra Bliss DO [Primary Care Provider] - Discharge Diet: Usual diet Discharge Activity: Increase activity as tolerated Patient Instructions: Bronchitis (Acute) - Adult Activity Restrictions/Additional Instructions: Continue with routine medications. Activity as tolerated. Follow-up with primary care in 3 to 5 days for recheck. Return to ED for worsening symptoms such as severe shortness of breath, fever greater than 100.4, or worsening chest pain. Coding Level of Care Code ED Forms Builder for Yun Pope
[2023-04-12] MEDS: doxycycline 100 mg Tablet PO (15:21)
[2023-04-12] MEDS: dexamethasone 10 mg/mL INJ IM (15:21)
[2023-04-12 15:26] VITALS: PULSE 73; RESP 18; O2SAT 94
== END 2023-04-12 15:27 | disposition home or self-care (01) ==
PROVIDERS: Emergency Provider Nurse Practitioner Family; PCP Family Medicine
DX: J40 Bronchitis, not specified as acute or chronic (principal); Z87.891 Personal history of nicotine dependence; I10 Essential (primary) hypertension; E78.5 Hyperlipidemia, unspecified
CPT/HCPCS: 71046; 96372; 99284; J1100

== ENCOUNTER → 2023-07-21 14:44 | Outpatient (BNVA) | payer MEDICARE, OTHER, SELFPAY | PROVIDERS: PCP Family Medicine; Visit Provider Internal Medicine | DX: I10 Essential (primary) hypertension (principal); E74.39 Other disorders of intestinal carbohydrate absorption; E78.2 Mixed hyperlipidemia; I34.0 Nonrheumatic mitral (valve) insufficiency; Z87.891 Personal history of nicotine dependence | CPT/HCPCS: 99213 ==

== ENCOUNTER 2023-11-12 19:46 | Emergency (ER) | payer MEDICARE, OTHER, SELFPAY ==
[2023-11-12] VITALS (7 sets, daily range): BP systolic 107–146; BP diastolic 51–75; PULSE 91–103; RESP 20; TEMP 36.9; O2SAT 87–93; BMI 33.0
--- NOTE | 2023-11-12 20:03 | ED_ITS ---
HPI - Nausea/Vomiting/Diarrhea 2 General: Chief complaint: Nausea/Vomiting/Diarrhea Stated complaint: n/d 3 daysfever weak Time Seen by Provider: 11/12/23 20:00 Source: patient Mode of arrival: ambulatory Limitations: no limitations History of Present Illness: 88-year-old male who states that having some nausea along with diarrhea over the last 3 days. He denies any vomiting he states has had no abdominal pain he states he is felt little weaker than typical. Family is concerned he may had a fever send felt hot earlier but is afebrile here. He denies any worse improving factors Associated nausea: Yes Associated symtoms: Reports nausea; Denies chest pain, dysuria or headache(s) Related Data Home Medications Medication Instructions Recorded Confirmed coenzyme Q10 75 mg capsule (Ultra 75 mg PO DAILY 02/23/20 07/21/23 CoQ10) multivitamin 1 tab PO DAILY 11/05/20 07/21/23 Previous Rx's Medication Instructions Recorded diclofenac sodium 1 % topical gel 2 gm topical QID #100 grams 09/02/19 (Voltaren) atorvastatin 40 mg tablet 40 mg PO DAILY #90 tabs 01/15/22 lisinopril 20 1 tab PO QDAY #90 tabs 03/18/23 mg-hydrochlorothiazide 25 mg tablet carvedilol 3.125 mg tablet See Rx Instructions .Route 06/16/23 .COMPLEX #180 tabs ondansetron 4 mg disintegrating 4 mg PO Q6H PRN nausea and 11/12/23 tablet vomiting #14 tabs Allergies Allergy/AdvReac Type Severity Reaction Status Date / Time sodium chloride for Allergy increases Verified 07/21/23 15:21 inhalation b/p [From Saline] sodium chloride AdvReac raised Verified 07/21/23 15:21 blood pressure really high Review of Systems 2 Const: Denies: fever(s), chills, body aches or change in appetite ENMT: Denies: throat pain or dental pain Card: Denies: chest pain Resp: Denies: dyspnea GI: Reports: nausea and diarrhea; Denies: abdominal pain or vomiting : Denies: dysuria Musc: Denies: neck pain or back pain Skin/Breast: Denies: rash Neuro: Denies: headache(s) PFSH ED 2 PFSH: Medical History Lower GI bleed Prediabetes Mitral regurgitation H/O [place] spotted fever Hyperlipidemia Enrolled in chronic care management Hypertension Surgical History H/O cataract extraction No pertinent past surgical history Family History Other CAD (coronary artery disease) Cancer Social History Smoking and tobacco/nicotine status: former use of tobacco/nicotine Alcohol intake: current Alcohol intake frequency: few times a week Alcohol type: beer Substance/Drug Use: never Lives independently: Yes Household members: spouse Marital status: Current occupational status: retired Do you think of yourself as: Straight/Heterosexual Current gender identity: Male Physical Exam 2 Const: COMMON NORMALS: no acute distress, patient oriented x3 and healthy appearing HENMT: COMMON NORMALS: normocephalic and atraumatic HEAD & SCALP: n ormocephalic and atraumatic Eye: COMMON NORMALS: Equal, round and reactive pupils present and EOMs intact bilaterally PUPIL: Yes Equal, round and reactive pupils present Neck/C-Spine: COMMON NORMALS: full ROM and supple Chest: COMMONS NORMALS: normal inspection of the chest and normal palpation of entire chest wall Resp: COMMON NORMALS: normal respiratory effort, No retractions, No use of accessory muscles and clear to auscultation bilaterally AUSCULTATION: clear to auscultation bilaterally Cardio: COMMON NORMALS: regular rate, regular rhythm and No murmurs present (Cardio) RATE: regular rate RHYTHM: regular rhythm GI: COMMON NORMALS: Normal to inspection, nondistended, normoactive bowel sounds present, Soft to palpation, non-tender and no masses PALPATION: Yes Soft to palpation Extremity: COMMON NORMALS: normal to inspection and full ROM Neuro: COMMON NORMALS: patient oriented x3, moves all extremities and no focal motor deficits Psych: COMMON NORMALS: mental status grossly normal, Normal thought process present and cooperative THOUGHT PROCESS: Normal thought process present Skin: COMMON NORMALS: no rashes or lesions noted and no wounds GENERAL SKIN EXAM: no rashes or lesions noted Course 2 Vital Signs: Vital signs: Vital Signs Temperature 98.4 F 11/12/23 19:52 Pulse Rate 102 H 11/12/23 19:52 Respiratory Rate 20 H 11/12/23 19:52 Blood Pressure 146/75 11/12/23 19:52 Pulse Oximetry 90 11/12/23 19:52 Oxygen Delivery Me thod Room Air 11/12/23 19:52 MDM - Nausea/Vomiting/Diarrhea Medical Decision Making Patient presents here with diarrhea along with some nausea he feels much improved here after meds and fluids has got a mild leukocytosis abdominal exam is benign he was unable to give a stool sample here he feels much improved like to go home I feel he is stable for discharge she is follow-up with PCP return if worsening he understands agrees to plan. Medical Records I reviewed the patient's medical records. Lab Data I reviewed the patient's lab results. 11/12/23 20:20 11/12/23 20:20 Laboratory Results WBC 14.74 10^3/uL (3.29-11.43) H 11/12/23 20:20 RBC 5.61 10^6/uL (3.85-5.65) 11/12/23 20:20 Hgb 16.80 g/dL (11.27-16.99) 11/12/23 20:20 Hct 51.0 % (37-53) 11/12/23 20:20 MCV 90.9 fl (82-101) 11/12/23 20:20 MCH 29.9 pg (27-33) 11/12/23 20:20 MCHC 32.9 g/dL (30-55) 11/12/23 20:20 RDW 13.9 % (12.1-15.1) 11/12/23 20:20 Plt Count 189 10^3/cmm (157-399) 11/12/23 20:20 MPV 9.7 fL (7.4-10.4) 11/12/23 20:20 Neut % (Auto) 88.8 % 11/12/23 20:20 Lymph % (Auto) 5.6 % 11/12/23 20:20 [place] % (Auto) 4.7 % 11/12/23 20:20 Eos % (Auto) 0.3 % 11/12/23 20:20 Baso % (Auto) 0.3 % 11/12/23 20:20 Neut # (Auto) 13.09 10^3/uL (1.8-7.7) H 11/12/23 20:20 Lymph # (Auto) 0.8 10^3/uL (0.8-4.8) 11/12/23 20:20 [place] # (Auto) 0.7 10^3/uL (0.2-0.9) 11/12/23 20:20 Eos # (Auto) 0.0 10^3/uL (0.0-0.8) 11/12/23 20:20 Baso # (Auto) 0.0 10^3/uL (0.0-0.1) 11/12/23 20:20 Nucleated RBC % (auto) 0 % 11/12/23 20:20 Nucleated RBCs # 0.0 /100WBC 11/12/23 20:20 Sodium 138 mmol/L (136-145) 11/12/23 20:20 Potassium 4.1 mmol/L (3.5-5.1) 11/12/23 20:20 Chloride 98 mmol/L (98-107) 11/12/23 20:20 Carbon Dioxide 27 mmol/L (22-29) 11/12/23 20:20 Anion Gap 17.1 (5-19) 11/12/23 20:20 BUN 29 mg/dL (8-23) H 11/12/23 20:20 Creatinine 1.4 mg/dL (0.7-1.2) H 11/12/23 20:20 GFR Calculation Not Reportable 11/12/23 20:20 Glucose 128 mg/dL (65-115) H 11/12/23 20:20 Calculated Osmolality 293 mOsm/kg (285-295) 11/12/23 20:20 Calcium 9.3 mg/dL (8.5-10.5) 11/12/23 20:20 Total Bilirubin 0.6 mg/dL (0.15-1.2) 11/12/23 20:20 AST 15 U/L (0-40) 11/12/23 20:20 ALT 8 U/L (0-41) 11/12/23 20:20 Alkaline Phosphatase 59 U/L (40-130) 11/12/23 20:20 Total Protein 7.2 g/dL (6.6-8.7) 11/12/23 20:20 Albumin 4.1 g/dL (3.5-5.2) 11/12/23 20:20 Globulin 3.1 g/dL (1.3-4.6) 11/12/23 20:20 Lipase 14 U/L (13-60) 11/12/23 20:20 No radiology studies performed this visit Discharge Plan Discharge Patient Disposition: Home Clinical Impression: Diarrhea Qualifiers: Diarrhea type: unspecified type Qualified Code(s): R19.7 - Diarrhea, unspecified Condition: Stable Prescriptions: New ondansetron 4 mg tablet,disintegrating 4 mg PO Q6H PRN (Reason: nausea and vomiting) Qty: 14 0RF No Action Ultra CoQ10 75 mg capsule 75 mg PO DAILY multivitamin Tablet 1 tab PO DAILY diclofenac sodium [Voltaren] 1 % gel 2 gm TOPICAL QID Qty: 100 2RF Rx Instructions: to left shoulder atorvastatin 40 mg tablet 40 mg PO DAILY Qty: 90 1RF lisinopril-hydrochlorothiazide 20-25 mg tablet 1 tab PO QDAY Qty: 90 1RF carvedilol 3.125 mg tablet See Rx Instructions .ROUTE .COMPLEX Qty: 180 3RF Dose Instruction: TAKE 1 TABLET BY MOUTH TWICE DAILY Rx Instructions: TAKE 1 TABLET BY MOUTH TWICE DAILY Discharge Orders: Discharge ED (Routine); Ordered 11/12/23 Ordered By: Tamar Taylor Referrals: Maria Alejandra Bliss DO [Primary Care Provider] - 4-7 days Discharge Diet: Advance as tolerated Discharge Activity: Resume usual activity Patient Instructions: Acute Nausea and Vomiting (ED), Acute Diarrhea (ED) Coding Level of Care Code ED [employer]ter for Yun Pope
[2023-11-12] MEDS: diphenoxylate/atropine Tablet 2 TAB PO (20:28)
[2023-11-12] MEDS: lactated ringers 500 ML 999 ML IV (20:28)
[2023-11-12] MEDS: ondansetron 2 mg/ML SDV 2 mL 4 MG IVP (20:28)
[2023-11-12 20:38] LABS: Basophils % 0.3 %; Eosinophils % 0.3 %; Lymphocytes # 0.8 10^3/uL (0.8-4.8); Lymphocytes % 5.6 %; Mean Corpuscular HGB Conc 32.9 g/dL (30-55); Mean Corpuscular Hemoglobin 29.9 pg (27-33); Mean Corpuscular Volume 90.9 fl (82-101); Mean Platelet Volume 9.7 fL (7.4-10.4); Monocytes # 0.7 10^3/uL (0.2-0.9); Monocytes % 4.7 %; Neutrophils # 13.09 10^3/uL (1.8-7.7); Neutrophils % 88.8 %; Nucleated Red Blood Cells % 0 %; Platelet Count 189 10^3/cmm (157-399); Red Blood Count 5.61 10^6/uL (3.85-5.65); Red Cell Distribution Width 13.9 % (12.1-15.1); White Blood Count 14.74 10^3/uL (3.29-11.43)
[2023-11-12 20:52] LABS: Alanine Aminotransferase 8 U/L (0-41); Albumin Level 4.1 g/dL (3.5-5.2); Alkaline Phosphatase 59 U/L (40-130); Anion Gap 17.1 (5-19); Aspartate Amino Transferase 15 U/L (0-40); Blood Urea Nitrogen 29 mg/dL (8-23); Calcium 9.3 mg/dL (8.5-10.5); Carbon Dioxide 27 mmol/L (22-29); Chloride 98 mmol/L (98-107); Creatinine Clr Calc Pharmacy 40.6846; Globulin 3.1 g/dL (1.3-4.6); Glucose 128 mg/dL (65-115); Lipase 14 U/L (13-60); Osmolality Calculated 293 mOsm/kg (285-295); Potassium 4.1 mmol/L (3.5-5.1); Sodium 138 mmol/L (136-145); Total Bilirubin 0.6 mg/dL (0.15-1.2); Total Protein 7.2 g/dL (6.6-8.7)
== END 2023-11-12 22:33 | disposition home or self-care (01) ==
PROVIDERS: Emergency Provider Emergency Medicine; PCP Family Medicine
DX: R19.7 Diarrhea, unspecified (principal); Z87.891 Personal history of nicotine dependence; I10 Essential (primary) hypertension; E78.5 Hyperlipidemia, unspecified
CPT/HCPCS: 80053; 83690; 85025; 96361; 96374; 99284; J2405; J7120

== ENCOUNTER 2023-11-23 21:11 | Inpatient (IN) | payer MEDICARE, OTHER, SELFPAY ==
[2023-11-23 21:17] VITALS: BP 127/77; PULSE 79; RESP 18; TEMP 36.5; O2SAT 93; BMI 32.2
[2023-11-23 22:02] LABS: Bacteria Urine None Seen /hpf; Hyaline Casts Urine 7.42 /lpf; RBC Urine 0-2 /hpf (0-2); Squamous Epithelial Cell Urine 0-5 /hpf (0-5); WBC Urine 0-5 /hpf (0-5)
[2023-11-23 22:07] LABS: Bilirubin Urine Negative (Negative); Blood Urine Negative (Negative); Glucose Urine UA Negative (Normal); Ketones Urine Negative (Negative); Leukocyte Esterase Urine Negative (Negative); Nitrate Urine Negative (Negative); Protein Urine 1+ (Negative); Specific Gravity, Urine 1.015 (1.005-1.030); Urine Appearance Clear (CLEAR); Urine Color Yellow (Yellow)
[2023-11-23 22:08] LABS: Add Urine Culture? No
--- NOTE | 2023-11-23 22:11 | ED_ITS ---
HPI - Abdominal Pain 2 General: Chief Complaint: Abdominal Pain Stated Complaint: pain in abd. no bm 4days. severe diareaha lst wk Time Seen by Provider: 11/23/23 21:36 History of Present Illness: 88-year-old man who presents to the [facility] room with abdominal pain. He says he is been sick for about 2 weeks. Initially had diarrhea, nausea and vomiting. He come to the ER and was sent home with some Zofran. is also been giving him antidiarrheal medications. She says the diarrhea stopped as well has the nausea and vomiting now he is having central abdominal pain has become very weak. He has been having to use a walker at home which he does not normally. No focal motor deficits. No altered mental status. No fevers. No chest pain. No shortness of breath. Related Data Home Medications Medication Instructions Recorded Confirmed coenzyme Q10 75 mg capsule (Ultra 75 mg PO DAILY 02/23/20 11/23/23 CoQ10) multivitamin 1 tab PO DAILY 11/05/20 11/23/23 Previous Rx's Medication Instructions Recorded diclofenac sodium 1 % topical gel 2 gm topical QID #100 grams 09/02/19 (Voltaren) ondansetron 4 mg disintegrating 4 mg PO Q6H PRN nausea and 11/12/23 tablet vomiting #14 tabs carvedilol 3.125 mg tablet See Rx Instructions .Route 11/23/23 .COMPLEX #180 tabs lisinopril 20 1 tab PO QDAY #90 tabs 11/23/23 mg-hydrochlorothiazide 25 mg tablet Allergies Allergy/AdvReac Type Severity Reaction Status Date / Time sodium chloride for Allergy increases Verified 11/23/23 21:20 inhalation b/p [From Saline] sodium chloride AdvReac raised Verified 11/23/23 21:20 blood pressure really high Review of Systems 2 Narrative: Constitutional symptoms: Negative except as documented in HPI. Skin symptoms: Negative except as documented in HPI. Eye symptoms: Negative except as documented in HPI. ENMT symptoms: Negative except as documented in HPI. Respiratory symptoms: Negative except as documented in HPI. Cardiovascular symptoms: Negative except as documented in HPI. Gastrointestinal symptoms: Negative except as documented in HPI. Genitourinary symptoms: Negative except as documented in HPI. Musculoskeletal symptoms: Negative except as documented in HPI. Neurologic symptoms: Negative except as documented in HPI. Psychiatric symptoms: Negative except as documented in HPI. Endocrine symptoms: Negative except as documented in HPI. PFSH ED 2 PFSH: Medical History (Updated 11/24/23 @ 02:33 by Regina Garrett MD) Chronic back pain Lower GI bleed Prediabetes Mitral regurgitation H/O [place] spotted fever Hyperlipidemia Enrolled in chronic care management Hypertension Surgical History H/O cataract extraction No pertinent past surgical history Family History Other CAD (coronary artery disease) Cancer Social History Smoking and tobacco/nicotine status: never used tobacco/nicotine Alcohol intake: current Alcohol intake frequency: few times a week Alcohol type: beer Substance/Drug Use: never Lives independently: Yes Household members: spouse Marital status: Current occupational status: retired Do you think of yourself as: Straight/Heterosexual Current gender identity: Male Physical Exam 2 Narrative: EXAM NARRATIVE: General: Alert, no acute distress. Skin: Warm, dry. Head: Normocephalic, atraumatic. Neck: Supple, trachea midline. Eye: Extraocular movements are intact. Ears, nose, mouth and throat: mucosa moist. Cardiovascular: Regular, Normal peripheral perfusion. Respiratory: Lungs are clear to auscultation, respirations are non-labored, breath sounds are equal, Symmetrical chest wall expansion. Gastrointestinal: Soft, some central abdominal tenderness, mild distention Musculoskeletal: Normal ROM, no deformity. Neurological: Alert and oriented, No focal neurological deficit observed. Psychiatric: Cooperative, appropriate mood & affect. Course 2 Vital Signs: Vital signs: Vital Signs Temperature 97.7 F 11/23/23 21:17 Pulse Rate 80 11/24/23 02:30 Respiratory Rate 18 11/23/23 21:17 Blood Pressure 126/63 11/24/23 02:30 Pulse Oximetry 93 11/24/23 02:30 Oxygen Delivery Me thod Room Air 11/24/23 02:30 MDM - Abdominal Pain Medical Decision Making Medical decision making: Differential diagnosis for this patient with nausea and vomiting including but not limited to and based on the above HPI, review of systems and physical exam: Urinary tract infection. Appendicitis. Cholecystis. colitis. small bowel obstruction. crohn's flare. pancreatitis. gastritis. peptic ulcer. cyclic vomiting. Viral illness. Influenza. COVID. - Workup - labwork and imaging ordered to evaluate, rule in and rule out above pathologies. Lab Review: Laboratory results were reviewed and interpreted by myself the emergency room physician. Patient has leukocytosis with white count of 17,000. This is elevated over his baseline. He is not anemic. BUN and creatinine are elevated at 62.2. This has been coming up quite a bit. Similar to measurements done earlier today but up from previous. Lipase is elevated at 400. Symptoms are consistent with pancreatitis CT of the abdomen pelvis without contrast. Diffuse peripancreatic fat stranding which would represent a mild acute pancreatitis. No other acute findings. This was reviewed and interpreted by myself the emergency room physician. I also reviewed the radiology report. I reviewed the patient's medical record. Reexamination: Patient remained stable. No increased work of breathing. No altered mental status. No focal motor deficits. Still with some epigastric abdominal pain. has stated that the patient cannot have normal saline because he is allergic it makes his blood pressure go up. I have discussed with her that the treatment for pancreatitis is to be n.p.o. and that he will need fluids because he is having some acute kidney failure as well. She agrees. Consultation: I spoke with Dr. Khan who is on-call for the hospitalist service and she is admitting Assessment and plan: Pancreatitis Dehydration Acute on chronic renal insufficiency ?IV fluids are being given. NPO. Admit. -I discussed the patient with the hospitalist on-call who is admitting the patient. - Discussed findings and plan with patient. Answered any questions. - All laboratory values were reviewed and interpreted personally by myself, the ER physician - All imaging was reviewed and interpreted personally by myself, the ER physician. - Evaluation and treatment of this problem were appropriate in the emergency setting Lab Data 11/23/23 22:10 11/23/23 22:50 Labs/Radiology: Radiology Impressions Abdomen/Pelvis CT 11/23/23 23:40 IMPRESSION: There is diffuse peripancreatic fat stranding which may represent a mild acute pancreatitis. No evidence of necrosis or acute pancreatic fluid collections. COMMENTS: Consistent with the [employer]'s Incidental Findings Committee white paper (J Am Luiz Radiol 2018): Any incidental renal lesion less than 1 cm or classified as too small to characterize, or any incidental cystic renal lesion characterized as simple-appearing, is likely benign. No follow-up imaging is recommended for these lesions per consensus recommendations based on imaging criteria. Laboratory Results WBC 17.62 10^3/uL (3.29-11.43) H 11/23/23 22:10 RBC 4.99 10^6/uL (3.85-5.65) 11/23/23 22:10 Hgb 14.80 g/dL (11.27-16.99) 11/23/23 22:10 Hct 42.9 % (37-53) 11/23/23 22:10 MCV 86.0 fl (82-101) 11/23/23 22:10 MCH 29.7 pg (27-33) 11/23/23 22:10 MCHC 34.5 g/dL (30-55) 11/23/23 22:10 RDW 13.8 % (12.1-15.1) 11/23/23 22:10 Plt Count 286 10^3/cmm (157-399) 11/23/23 22:10 MPV 9.6 fL (7.4-10.4) 11/23/23 22:10 Neut % (Auto) 82.5 % 11/23/23 22:10 Lymph % (Auto) 7.9 % 11/23/23 22:10 [place] % (Auto) 7.6 % 11/23/23 22:10 Eos % (Auto) 1.0 % 11/23/23 22:10 Baso % (Auto) 0.3 % 11/23/23 22:10 Neut # (Auto) 14.53 10^3/uL (1.8-7.7) H 11/23/23 22:10 Lymph # (Auto) 1.4 10^3/uL (0.8-4.8) 11/23/23 22:10 [place] # (Auto) 1.3 10^3/uL (0.2-0.9) H 11/23/23 22:10 Eos # (Auto) 0.2 10^3/uL (0.0-0.8) 11/23/23 22:10 Baso # (Auto) 0.1 10^3/uL (0.0-0.1) 11/23/23 22:10 Nucleated RBC % (auto) 0 % 11/23/23 22:10 Nucleated RBCs # 0.0 /100WBC 11/23/23 22:10 Sodium 132 mmol/L (136-145) L 11/23/23 22:50 Potassium 3.9 mmol/L (3.5-5.1) 11/23/23 22:50 Chloride 98 mmol/L (98-107) 11/23/23 22:50 Carbon Dioxide 22 mmol/L (22-29) 11/23/23 22:50 Anion Gap 15.9 (5-19) 11/23/23 22:50 BUN 60 mg/dL (8-23) H 11/23/23 22:50 Creatinine 2.2 mg/dL (0.7-1.2) H 11/23/23 22:50 GFR Calculation Not Reportable 11/23/23 22:50 Glucose 115 mg/dL (65-115) 11/23/23 22:50 Calculated Osmolality 292 mOsm/kg (285-295) 11/23/23 22:50 Lactic Acid 1.1 mmol/L (0.5-2.2) 11/23/23 22:50 Calcium 8.4 mg/dL (8.5-10.5) L 11/23/23 22:50 Total Bilirubin 0.5 mg/dL (0.15-1.2) 11/23/23 22:50 AST 12 U/L (0-40) 11/23/23 22:50 ALT 7 U/L (0-41) 11/23/23 22:50 Alkaline Phosphatase 58 U/L (40-130) 11/23/23 22:50 C-Reactive Protein 199.4 mg/L (0.0-4.9) H 11/23/23 22:50 Total Protein 6.5 g/dL (6.6-8.7) L 11/23/23 22:50 Albumin 3.4 g/dL (3.5-5.2) L 11/23/23 22:50 Globulin 3.1 g/dL (1.3-4.6) 11/23/23 22:50 Lipase 381 U/L (13-60) H 11/23/23 22:50 Urine Color Yellow (Yellow) 11/23/23 21:52 Urine Appearance Clear (CLEAR) 11/23/23 21:52 Urine pH 5.0 (5-7) 11/23/23 21:52 Ur Specific [place] 1.015 (1.005-1.030) 11/23/23 21:52 Urine Protein 1+ (Negative) A 11/23/23 21:52 Urine Glucose (UA) Negative (Normal) 11/23/23 21:52 Urine Ketones Negative (Negative) 11/23/23 21:52 Urine Blood Negative (Negative) 11/23/23 21:52 Urine Nitrate Negative (Negative) 11/23/23 21:52 Urine Bilirubin Negative (Negative) 11/23/23 21:52 Urine Urobilinogen 1.0 mg/dL (Negative) 11/23/23 21:52 Ur Leukocyte Esterase Negative (Negative) 11/23/23 21:52 Urine RBC 0-2 /hpf (0-2) 11/23/23 21:52 Urine WBC 0-5 /hpf (0-5) 11/23/23 21:52 Ur Squamous Epith Cells 0-5 /hpf (0-5) 11/23/23 21:52 Amorphous Sediment Not Reportable 11/23/23 21:52 Urine Bacteria None seen /hpf (NONE) 11/23/23 21:52 Hyaline Casts 7.42 /lpf 11/23/23 21:52 Coronavirus (PCR) Negative (Negative) 11/23/23 21:48 Influenza A (PCR) Negative (Negative) 11/23/23 21:48 Influenza Type B (PCR) Negative (Negative) 11/23/23 21:48 RSV (PCR) Negative (Negative) 11/23/23 21:48 All radiology interpretation(s) finalized by discharge Discharge Plan Discharge Patient Disposition: Admitted As Inpatient Clinical Impression: Pancreatitis, Dehydration, Acute on chronic renal insufficiency Condition: Stable Coding Level of Care Code ED Coat Cutter for Yun Pope
[2023-11-23 22:18] VITALS: BP 130/54; PULSE 87; O2SAT 95
[2023-11-23 22:25] LABS: Basophils # 0.1 10^3/uL (0.0-0.1); Basophils % 0.3 %; Eosinophils # 0.2 10^3/uL (0.0-0.8); Hematocrit 42.9 % (37-53); Lymphocytes # 1.4 10^3/uL (0.8-4.8); Lymphocytes % 7.9 %; Mean Corpuscular HGB Conc 34.5 g/dL (30-55); Mean Corpuscular Hemoglobin 29.7 pg (27-33); Mean Platelet Volume 9.6 fL (7.4-10.4); Monocytes # 1.3 10^3/uL (0.2-0.9); Monocytes % 7.6 %; Neutrophils # 14.53 10^3/uL (1.8-7.7); Neutrophils % 82.5 %; Nucleated Red Blood Cells % 0 %; Platelet Count 286 10^3/cmm (157-399); Red Blood Count 4.99 10^6/uL (3.85-5.65); Red Cell Distribution Width 13.8 % (12.1-15.1); White Blood Count 17.62 10^3/uL (3.29-11.43)
[2023-11-23 22:30] VITALS: BP 122/64; PULSE 83; O2SAT 93
[2023-11-23 22:34] LABS: Covid PCR NEGATIVE (Negative); Influenza A NEGATIVE (Negative); Influenza B NEGATIVE (Negative); Respiratory Syncytial Virus Ce NEGATIVE (Negative)
[2023-11-23 23:00] VITALS: BP 107/57; PULSE 85; O2SAT 94
[2023-11-23 23:18] LABS: Alanine Aminotransferase 7 U/L (0-41); Albumin Level 3.4 g/dL (3.5-5.2); Alkaline Phosphatase 58 U/L (40-130); Anion Gap 15.9 (5-19); Aspartate Amino Transferase 12 U/L (0-40); Blood Urea Nitrogen 60 mg/dL (8-23); C Reactive Protein 199.4 mg/L (0.0-4.9); Calcium 8.4 mg/dL (8.5-10.5); Carbon Dioxide 22 mmol/L (22-29); Chloride 98 mmol/L (98-107); Creatinine Clr Calc Pharmacy 24.8033; Globulin 3.1 g/dL (1.3-4.6); Glucose 115 mg/dL (65-115); Osmolality Calculated 292 mOsm/kg (285-295); Potassium 3.9 mmol/L (3.5-5.1); Sodium 132 mmol/L (136-145); Total Bilirubin 0.5 mg/dL (0.15-1.2); Total Protein 6.5 g/dL (6.6-8.7)
[2023-11-23 23:19] LABS: Lactic Sepsis W/Reflex 1.1 mmol/L (0.5-2.2)
[2023-11-23 23:25] LABS: Lipase 381 U/L (13-60)
[2023-11-23 23:30] VITALS: BP 118/54; PULSE 90; O2SAT 93
--- NOTE | 2023-11-23 23:40 | CTR_ITS ---
PROCEDURE INFORMATION: Exam: CT Abdomen And Pelvis Without Contrast Exam date and time: 11/23/2023 11:49 PM Age: 88 years old Clinical indication: Abdominal pain; Localized; Left TECHNIQUE: Imaging protocol: Computed tomography of the abdomen and pelvis without contrast. Radiation optimization: All CT scans at this facility use at least one of these dose optimization techniques: automated exposure control; mA and/or kV adjustment per patient size (includes targeted exams where dose is matched to clinical indication); or iterative reconstruction. COMPARISON: CT abdomen pelvis w con* [id number] 01/16/2021 10:57 PM RADIATION DOSE METRICS: Total DLP (mGy-cm): 996.31 FINDINGS: Lungs: Right lower lobe linear atelectasis. Coronary arteries: Coronary artery calcifications. Liver: Hepatic granulomas. Gallbladder and biliary ducts: Normal. No calcified stones. No ductal dilation. Pancreas: There is diffuse peripancreatic fat stranding which may represent a mild pancreatitis. Spleen: Splenic granuloma. Adrenal glands: Normal. No mass. Kidneys and ureters: Left interpolar simple cortical renal cysts. Bilateral perinephric fat stranding. No hydronephrosis. Stomach and bowel: Colonic diverticulosis without diverticulitis. Appendix: No evidence of appendicitis. Intraperitoneal space: Unremarkable. No free air. No significant fluid collection. Vasculature: Aortic and mitral valve calcifications. Severe atherosclerotic changes of the aorta and its major branches. Lymph nodes: Partially calcified aortocaval and retroperitoneal lymph nodes. Urinary bladder: Unremarkable as visualized. Reproductive: Unremarkable as visualized. Bones/joints: Severe multilevel spondylosis. Soft tissues: Unremarkable. CT/CT abdomen pelvis wo con [id number] IMPRESSION: There is diffuse peripancreatic fat stranding which may represent a mild acute pancreatitis. No evidence of necrosis or acute pancreatic fluid collections. COMMENTS: Consistent with the [employer]'s Incidental Findings Committee white paper (J Am Luiz Radiol 2018): Any incidental renal lesion less than 1 cm or classified as too small to characterize, or any incidental cystic renal lesion characterized as simple-appearing, is likely benign. No follow-up imaging is recommended for these lesions per consensus recommendations based on imaging criteria.
[2023-11-24] VITALS (16 sets, daily range): BP systolic 107–154; BP diastolic 54–97; PULSE 68–91; RESP 17–20; TEMP 36.7; O2SAT 91–96; BMI 32.2
[2023-11-24] MEDS: sodium chloride 0.9% 1,000 ML 999 ML IV (02:40)
--- NOTE | 2023-11-24 05:14 | PM.HP ---
Providers/Chief Complaint Admitting Physician: Renae Khan MD Primary Care Provider: Nick Bello MD Chief Complaint: pain in abd. no bm 4days. severe diareaha lst wk History of Present Illness Tarik Pink is a 88 year old male with past medical history of hypertension, hyperlipidemia, mitral regurgitation, chronic lower extremity swelling, prediabetes presenting to the hospital today with feeling unwell for about 3 weeks now. Patient had presented to the emergency room on November 12, 2023 at which time he was having profuse diarrhea abdominal pain nausea and vomiting. He was diagnosed with viral gastroenteritis and received symptomatic management. He was taking Zofran and Imodium at home. The diarrhea has since subsided and he has not now had a bowel movement in 4 days. He has however continued to experience abdominal discomfort and nausea. He went for follow-up with his primary care physician today where he had blood work drawn. His creatinine is now elevated at 2.2, previously having been at baseline of 1.4. He has leukocytosis with a white blood cell count of 17,000. Had fever 2 weeks ago at onset of symptoms, since then has been afebrile. Drinks beer occasionally, no history of binge alcohol drinking recently. Review of Systems General: Reports: 10 or more systems reviewed and unremarkable except in HPI and below Const: Denies: fever(s), chills or body aches Eyes: Denies: change in vision, blurry vision or photophobia ENMT: Reports: hoarseness; Denies: throat pain, enlarged tonsils, odynophagia or nasal congestion Card: Denies: chest pain, palpitations, irregular heart rhythm, edema, swelling of feet/ankles, lightheadedness, pre-syncope, dyspnea on exertion or orthopnea Resp: Denies: dyspnea, productive cough, non-productive cough, wheezing, stridor, pain on inspiration, change in phlegm color, hemoptysis or chest congestion GI: Denies: abdominal pain, nausea, vomiting, hematemesis, coffee ground emesis, dysphagia, heartburn, diarrhea, constipation, GI cramping, change in stool character, hematochezia or melena : Denies: flank pain, dysuria, urinary frequency, urinary urgency, urinary hesitancy or hematuria Musc: Denies: neck pain, back pain, extremity pain, joint swelling, joint warmth or deformity Neuro: Denies: headache(s), numbness in extremities, weakness in extremities, sensory changes, difficulty walking, frequent falls, dizziness, vertigo, behavioral changes, Slurred speech present or seizure-like activity Psych: Denies: anxiety, depression, suicidal ideation or homicidal ideation Endo: Denies: polyuria, polydipsia, tired all the time, cold intolerance or hot flashes Marvin/Lymph: Denies: easy bruising or easy bleeding Medications/Allergies Home Medications Medication Instructions Recorded Confirmed Last Taken Type diclofenac sodium 1 % topical gel 2 gm topical QID #100 grams 09/02/19 11/23/23 Unknown Rx (Voltaren) coenzyme Q10 75 mg capsule (Ultra 75 mg PO DAILY 02/23/20 11/23/23 Unknown History CoQ10) multivitamin 1 tab PO DAILY 11/05/20 11/23/23 Unknown History ondansetron 4 mg disintegrating 4 mg PO Q6H PRN nausea and 11/12/23 11/23/23 Unknown Rx tablet vomiting #14 tabs carvedilol 3.125 mg tablet See Rx Instructions .Route 11/23/23 11/23/23 Unknown Rx .COMPLEX #180 tabs lisinopril 20 1 tab PO QDAY #90 tabs 11/23/23 11/23/23 Unknown Rx mg-hydrochlorothiazide 25 mg tablet Allergies Allergy/AdvReac Type Severity Reaction Status Date / Time sodium chloride for Allergy increases Verified 11/23/23 21:20 inhalation b/p [From Saline] sodium chloride AdvReac raised Verified 11/23/23 21:20 blood pressure really high PFSH Acute PFSH: Medical History Chronic back pain Lower GI bleed Prediabetes Mitral regurgitation H/O [place] spotted fever Hyperlipidemia Enrolled in chronic care management Hypertension Surgical History H/O cataract extraction No pertinent past surgical history Family History Other CAD (coronary artery disease) Cancer Social History Smoking and tobacco/nicotine status: never used tobacco/nicotine Alcohol intake: current Alcohol intake frequency: few times a week Alcohol type: beer Substance/Drug Use: never Lives independently: Yes Household members: spouse Marital status: Current occupational status: retired Do you think of yourself as: Straight/Heterosexual Current gender identity: Male Vitals/I&O/Wt Last Vital Signs Temp 97.7 F 11/23/23 21:17 Pulse 74 11/24/23 04:53 Resp 18 11/23/23 21:17 BP 109/71 11/24/23 04:53 Pulse Ox 95 11/24/23 04:53 O2 Del Method Room Air 11/24/23 04:30 Weight last 48 hrs Weight 93.44 kg Physical Exam Narrative: General: No acute distress, AO x3 HEENT: PERRLA, pupils bilaterally equal and reactive, pallors not present Chest: Normal vesicular breath sounds, no added sounds, equal good air entry bilaterally CVS: S1-S2 regular, no murmurs, no tachycardia, no gallops, no rubs Abdomen: Soft, nontender, no organomegaly, bowel sounds present Neuro: No focal deficits, no facial deformity, AO x3, power 5/5 in all limbs Data 11/23/23 22:10 11/23/23 22:50 Micro: Microbiology 11/23/23 22:21 Blood Culture - Preliminary Blood SPECIMEN COLLECTED 11/23/23 22:10 Blood Culture - Preliminary Blood SPECIMEN COLLECTED Other data: Radiology Impressions Abdomen/Pelvis CT 11/23/23 23:40 IMPRESSION: There is diffuse peripancreatic fat stranding which may represent a mild acute pancreatitis. No evidence of necrosis or acute pancreatic fluid collections. COMMENTS: Consistent with the [employer]'s Incidental Findings Committee white paper (J Am Luiz Radiol 2018): Any incidental renal lesion less than 1 cm or classified as too small to characterize, or any incidental cystic renal lesion characterized as simple-appearing, is likely benign. No follow-up imaging is recommended for these lesions per consensus recommendations based on imaging criteria. Laboratory Results WBC 17.62 10^3/uL (3.29-11.43) H 11/23/23 22:10 RBC 4.99 10^6/uL (3.85-5.65) 11/23/23 22:10 Hgb 14.80 g/dL (11.27-16.99) 11/23/23 22:10 Hct 42.9 % (37-53) 11/23/23 22:10 MCV 86.0 fl (82-101) 11/23/23 22:10 MCH 29.7 pg (27-33) 11/23/23 22:10 MCHC 34.5 g/dL (30-55) 11/23/23 22:10 RDW 13.8 % (12.1-15.1) 11/23/23 22:10 Plt Count 286 10^3/cmm (157-399) 11/23/23 22:10 MPV 9.6 fL (7.4-10.4) 11/23/23 22:10 Neut % (Auto) 82.5 % 11/23/23 22:10 Lymph % (Auto) 7.9 % 11/23/23 22:10 [place] % (Auto) 7.6 % 11/23/23 22:10 Eos % (Auto) 1.0 % 11/23/23 22:10 Baso % (Auto) 0.3 % 11/23/23 22:10 Neut # (Auto) 14.53 10^3/uL (1.8-7.7) H 11/23/23 22:10 Lymph # (Auto) 1.4 10^3/uL (0.8-4.8) 11/23/23 22:10 [place] # (Auto) 1.3 10^3/uL (0.2-0.9) H 11/23/23 22:10 Eos # (Auto) 0.2 10^3/uL (0.0-0.8) 11/23/23 22:10 Baso # (Auto) 0.1 10^3/uL (0.0-0.1) 11/23/23 22:10 Nucleated RBC % (auto) 0 % 11/23/23 22:10 Nucleated RBCs # 0.0 /100WBC 11/23/23 22:10 Sodium 132 mmol/L (136-145) L 11/23/23 22:50 Potassium 3.9 mmol/L (3.5-5.1) 11/23/23 22:50 Chloride 98 mmol/L (98-107) 11/23/23 22:50 Carbon Dioxide 22 mmol/L (22-29) 11/23/23 22:50 Anion Gap 15.9 (5-19) 11/23/23 22:50 BUN 60 mg/dL (8-23) H 11/23/23 22:50 Creatinine 2.2 mg/dL (0.7-1.2) H 11/23/23 22:50 GFR Calculation Not Reportable 11/23/23 22:50 Glucose 115 mg/dL (65-115) 11/23/23 22:50 Calculated Osmolality 292 mOsm/kg (285-295) 11/23/23 22:50 Lactic Acid 1.1 mmol/L (0.5-2.2) 11/23/23 22:50 Calcium 8.4 mg/dL (8.5-10.5) L 11/23/23 22:50 Total Bilirubin 0.5 mg/dL (0.15-1.2) 11/23/23 22:50 AST 12 U/L (0-40) 11/23/23 22:50 ALT 7 U/L (0-41) 11/23/23 22:50 Alkaline Phosphatase 58 U/L (40-130) 11/23/23 22:50 C-Reactive Protein 199.4 mg/L (0.0-4.9) H 11/23/23 22:50 Total Protein 6.5 g/dL (6.6-8.7) L 11/23/23 22:50 Albumin 3.4 g/dL (3.5-5.2) L 11/23/23 22:50 Globulin 3.1 g/dL (1.3-4.6) 11/23/23 22:50 Lipase 381 U/L (13-60) H 11/23/23 22:50 Urine Color Yellow (Yellow) 11/23/23 21:52 Urine Appearance Clear (CLEAR) 11/23/23 21:52 Urine pH 5.0 (5-7) 11/23/23 21:52 Ur Specific [place] 1.015 (1.005-1.030) 11/23/23 21:52 Urine Protein 1+ (Negative) A 11/23/23 21:52 Urine Glucose (UA) Negative (Normal) 11/23/23 21:52 Urine Ketones Negative (Negative) 11/23/23 21:52 Urine Blood Negative (Negative) 11/23/23 21:52 Urine Nitrate Negative (Negative) 11/23/23 21:52 Urine Bilirubin Negative (Negative) 11/23/23 21:52 Urine Urobilinogen 1.0 mg/dL (Negative) 11/23/23 21:52 Ur Leukocyte Esterase Negative (Negative) 11/23/23 21:52 Urine RBC 0-2 /hpf (0-2) 11/23/23 21:52 Urine WBC 0-5 /hpf (0-5) 11/23/23 21:52 Ur Squamous Epith Cells 0-5 /hpf (0-5) 11/23/23 21:52 Amorphous Sediment Not Reportable 11/23/23 21:52 Urine Bacteria None seen /hpf (NONE) 11/23/23 21:52 Hyaline Casts 7.42 /lpf 11/23/23 21:52 Coronavirus (PCR) Negative (Negative) 11/23/23 21:48 Influenza A (PCR) Negative (Negative) 11/23/23 21:48 Influenza Type B (PCR) Negative (Negative) 11/23/23 21:48 RSV (PCR) Negative (Negative) 11/23/23 21:48 A&P Assessment and plan (1) Acute pancreatitis: Patient presenting with 2 weeks of abdominal pain, diarrhea, nausea and intermittent vomiting. CT of the abdomen and pelvis today revealing acute pancreatitis. Lipase is elevated at 381, as are inflammatory markers including CRP at 199.4. [facility] for now for bowel rest Start IV fluid hydration with normal saline, gentle hydration only at 50 cc an hour due to history of MR, history of cardiomyopathy and lower extremity pitting edema. Patient reports a history of alcohol consumption, however denies any binge alcohol drinking recently. CT of the abdomen and pelvis without any gallbladder stones or biliary dilatation Check triglyceride level No obviously offending medication noted on his home medication list. Pain control with IV morphine as needed (2) Mitral regurgitation: history of mitral regurgitation. Typically has chronic lower extremity edema per which waxes and wanes. He is not typically on any diuretics. Qualifiers: Cardiac valve disease etiology: nonrheumatic Qualified Code(s): I34.0 - Nonrheumatic mitral (valve) insufficiency (3) MINE (acute kidney injury): Acute kidney injury with creatinine up to 2.2. Patient's baseline appears to be around 1.4. Suspect this is related to dehydration from 3 weeks of ongoing diarrhea nausea and vomiting. Gentle IV hydration as noted above. Monitor kidney function and urine output closely with initiation of IV hydration. Hold lisinopril HCTZ while kidney function recovers. Would use amlodipine if needed for blood pressure management. Continue carvedilol 3.125 mg p.o. twice daily. (4) Leukocytosis: Suspect also related to dehydration and hemoconcentration. IV fluids as above. Holding off on abx for now check CXR UA negative for UTI Plan Chronic diarrhea for 3 weeks. Patient has been taking Imodium at home, states that he has not had any bowel movement in 4 days now. No signs of bowel obstruction on CT taken today. He is passing flatus. Should diarrhea recur, ordered for C. difficile PCR, fecal fat, stool lactoferrin and stool culture. Patient reports that he has been eating store-bought salad mixes following which she has developed diarrhea recently. No further imodium until infectious diarrhea can be ruled out DVT prophylaxis: Heparin 5000 every 12 hours Full code Attestations Medical Necessity Statement*: Greater than 2 midnight stay is anticipated for IV hydration, serial monitoring of kidney function and urine output, stool tests as noted above. Coding Level of Care Code Acute Code for Chg Fwd Moderate MDM includes number and complexity of problems actively addressed during encounter, amount and/or complexity of data reviewed/ordered and described risk of complication, morbidity or mortality of management as documented Diagnoses Acute pancreatitis K85.90 Nonrheumatic mitral valve regurgitation I34.0 Cardiac valve disease etiology: nonrheumatic MINE (acute kidney injury) N17.9 Leukocytosis D72.829
[2023-11-24] MEDS: sodium chloride 0.9% 1,000 ML 50 ML IV (05:27)
--- NOTE | 2023-11-24 05:41 | XR_ITS ---
WS: [id number] PORTABLE CHEST HISTORY: edema COMPARISON: 04/12/2023 Minimal atelectasis at the RIGHT lung base. No dense consolidation. No venous congestion identified. No pleural effusion or pneumothorax. Cardiac size: Mildly enlarged cardiac silhouette. Mediastinum/Aorta: Ectatic thoracic aorta with moderate calcification. Severe glenohumeral joint arthritis. XR/XR chest 1V portable [id number] IMPRESSION: 1. No pneumonia. 2. No fluid overload or pulmonary congestion. 3. Ectatic thoracic aorta with calcified plaque.
[2023-11-24 05:46] LABS: Triglycerides 100 mg/dL (0-150)
[2023-11-24 07:12] LABS: NT Pro B Type Natriuretic Pept 3325 pg/mL (0-450)
[2023-11-24] MEDS: carvedilol 3.125 mg Tablet PO ×2 (09:43→17:27)
[2023-11-24] MEDS: heparin 5,000 unit/mL INJ 1 mL 5000 UNIT SUBCUT ×2 (09:43→22:32)
[2023-11-24] MEDS: pantoprazole DR 40 mg Tablet PO (09:44)
--- NOTE | 2023-11-24 09:47 | PC.CHAP ---
Pastoral Care Encounter/Spiritual Assessment Type of Contact [] Declined teacher ballet visit [] Patient/Family/Request visit [] Outpatient visit [] Follow-up visit [] Physician referral [] Code/Alert [x] Routine visit [] Staff referral [] Actively dying [] Patient sleeping [] Family support [] [] Out of room [] Palliative care [] [] Receiving care in room [] Pre-surgical visit [] Trauma [] Long length of stay [] ICU visit [] Other: Relational/Emotional Strength [x] Patient feels connected with others/family/visitors/staff [] Distress [] Loneliness/isolation [] Abandonment Spirituality of Patient [x] Person of Freda [] Attends Sabianism of their Freda [x] Believes in Prayer [] Reads Bible or Cheondoism materials [] There are Spiritual issues to be addressed Leather Stretcher Interventions [x] Prayer [x] Active listening [] Non-anxious presence [x] Spiritual/emotional support [] Crisis/trauma care [] Spiritual counseling [] Bereavement support [] Provided bereavement packet [] Provided Bible/devotional materials [] Provided toy/stuffed animal, coloring book to patient or family member [] Provided Communion [] Anointing/[place] [] Salvation [x] Completed spiritual assessment [] Other: Impact on Illness or Injury [] Angry [] Fearful [] Anxious [] Often cries [] Exhaustion [] Unable to work [] Unable to attend yarsani [] Unable to walk/stand [] Unable to read [] Unable to drive [] Unable to eat/drink [] Unable to sleep [] Unable to be with family [] Patient intubated [] Other: Summary Time spent with patient 5 min
--- NOTE | 2023-11-24 12:31 | PM.MISC ---
Miscellaneous Note Note: Seen today. Manage as per H&P.
[2023-11-24 14:02] LABS: C.Diff PCR (Lab) NEGATIVE (Negative)
[2023-11-25] VITALS (7 sets, daily range): BP systolic 115–144; BP diastolic 46–93; PULSE 63–111; RESP 16–19; TEMP 36.5–36.9; O2SAT 93–97
[2023-11-25 05:33] LABS: Basophils # 0.1 10^3/uL (0.0-0.1); Basophils % 0.4 %; Eosinophils # 0.2 10^3/uL (0.0-0.8); Eosinophils % 1.7 %; Hematocrit 39.8 % (37-53); Lymphocytes # 1.2 10^3/uL (0.8-4.8); Lymphocytes % 9.8 %; Mean Corpuscular HGB Conc 33.7 g/dL (30-55); Mean Platelet Volume 9.3 fL (7.4-10.4); Monocytes % 7.9 %; Neutrophils # 9.54 10^3/uL (1.8-7.7); Neutrophils % 79.3 %; Nucleated Red Blood Cells % 0 %; Platelet Count 233 10^3/cmm (157-399); Red Blood Count 4.47 10^6/uL (3.85-5.65); Red Cell Distribution Width 13.9 % (12.1-15.1); White Blood Count 12.03 10^3/uL (3.29-11.43)
[2023-11-25 05:48] LABS: Alanine Aminotransferase 6 U/L (0-41); Alkaline Phosphatase 46 U/L (40-130); Anion Gap 13.7 (5-19); Aspartate Amino Transferase 9 U/L (0-40); Blood Urea Nitrogen 44 mg/dL (8-23); Calcium 7.9 mg/dL (8.5-10.5); Carbon Dioxide 23 mmol/L (22-29); Chloride 108 mmol/L (98-107); Creatinine Clr Calc Pharmacy 26.4494; Globulin 2.5 g/dL (1.3-4.6); Glucose 119 mg/dL (65-115); Osmolality Calculated 304 mOsm/kg (285-295); Potassium 3.7 mmol/L (3.5-5.1); Sodium 141 mmol/L (136-145); Total Bilirubin 0.4 mg/dL (0.15-1.2); Total Protein 5.5 g/dL (6.6-8.7)
[2023-11-25] MEDS: carvedilol 3.125 mg Tablet PO ×2 (09:53→18:16)
[2023-11-25] MEDS: pantoprazole DR 40 mg Tablet PO (09:53)
[2023-11-25] MEDS: heparin 5,000 unit/mL INJ 1 mL 5000 UNIT SUBCUT ×2 (09:53→21:34)
--- NOTE | 2023-11-25 10:29 | PC.CHAP ---
Pastoral Care Encounter/Spiritual Assessment Type of Contact [] Declined paper tube cutter visit [] Patient/Family/Request visit [] Outpatient visit [] Follow-up visit [] Physician referral [] Code/Alert [] Routine visit [] Staff referral [] Actively dying [] Patient sleeping [] Family support [] [] Out of room [] Palliative care [] [x] Receiving care in room [] Pre-surgical visit [] Trauma [] Long length of stay [] ICU visit [] Other: Relational/Emotional Strength [] Patient feels connected with others/family/visitors/staff [] Distress [] Loneliness/isolation [] Abandonment Spirituality of Patient [] Person of Freda [] Attends Religion of their Freda [] Believes in Prayer [] Reads Bible or Bahai materials [] There are Spiritual issues to be addressed Movable Bulkhead Installer Interventions [] Prayer [] Active listening [] Non-anxious presence [] Spiritual/emotional support [] Crisis/trauma care [] Spiritual counseling [] Bereavement support [] Provided bereavement packet [] Provided Bible/devotional materials [] Provided toy/stuffed animal, coloring book to patient or family member [] Provided Communion [] Anointing/[place] [] Salvation [] Completed spiritual assessment [] Other: Impact on Illness or Injury [] Angry [] Fearful [] Anxious [] Often cries [] Exhaustion [] Unable to work [] Unable to attend buddhism [] Unable to walk/stand [] Unable to read [] Unable to drive [] Unable to eat/drink [] Unable to sleep [] Unable to be with family [] Patient intubated [] Other: Summary Time spent with patient
--- NOTE | 2023-11-25 12:01 | P.PN_ITS ---
Subjective 2 Subjective: seen today feels slightly better states had a bm this morning wants to advance diet cr 2.1 this am Vitals/I&O/Wt Last Vital Signs Temp 98.2 F 11/25/23 07:41 Pulse 111 H 11/25/23 09:52 Resp 16 11/25/23 07:41 BP 119/74 11/25/23 09:52 Pulse Ox 97 11/25/23 07:41 O2 Del Method Room Air 11/25/23 07:41 11/24/23 11/25/23 11/25/23 22:59 06:59 14:59 Intake Total 620 / 1100 959.167 / 2059.167 476 / 476 Output Total 200 / 200 Balance 620 / 1100 759.167 / 1859.167 476 / 476 Weight last 48 hrs Weight 96.887 kg Weight 93.44 kg Weight 93.44 kg Physical Exam 2 Narrative: General: No acute distress, AO x3 HEENT: PERRLA, pupils bilaterally equal and reactive, pallors not present Chest: Normal vesicular breath sounds, no added sounds, equal good air entry bilaterally CVS: S1-S2 regular, no murmurs, no tachycardia, no gallops, no rubs Abdomen: Soft, nontender, no organomegaly, bowel sounds present Neuro: No focal deficits, no facial deformity, AO x3, power 5/5 in all limbs Data 11/25/23 05:21 11/25/23 05:21 Micro: Microbiology 11/23/23 22:21 Blood Culture - Preliminary Blood NEGATIVE TO DATE 11/23/23 22:10 Blood Culture - Preliminary Blood NEGATIVE TO DATE 11/24/23 12:02 Stool Lactoferrin - Final Stool A&P Assessment and plan (1) Acute pancreatitis: Patient presenting with 2 weeks of abdominal pain, diarrhea, nausea and intermittent vomiting. CT of the abdomen and pelvis today revealing acute pancreatitis. Lipase is elevated at 381, as are inflammatory markers including CRP at 199.4. Admit to [facility] Clear liquid diet for now for bowel rest Start IV fluid hydration with normal saline, gentle hydration only at 50 cc an hour due to history of MR, history of cardiomyopathy and lower extremity pitting edema. Patient reports a history of alcohol consumption, however denies any binge alcohol drinking recently. CT of the abdomen and pelvis without any gallbladder stones or biliary dilatation Check triglyceride level No obviously offending medication noted on his home medication list. Pain control with IV morphine as needed (2) Mitral regurgitation: history of mitral regurgitation. Typically has chronic lower extremity edema per which waxes and wanes. He is not typically on any diuretics. Qualifiers: Cardiac valve disease etiology: nonrheumatic Qualified Code(s): I34.0 - Nonrheumatic mitral (valve) insufficiency (3) MINE (acute kidney injury): Acute kidney injury with creatinine up to 2.2. Patient's baseline appears to be around 1.4. Suspect this is related to dehydration from 3 weeks of ongoing diarrhea nausea and vomiting. Gentle IV hydration as noted above. Monitor kidney function and urine output closely with initiation of IV hydration. Hold lisinopril HCTZ while kidney function recovers. Would use amlodipine if needed for blood pressure management. Continue carvedilol 3.125 mg p.o. twice daily. (4) Leukocytosis: Suspect also related to dehydration and hemoconcentration. IV fluids as above. Holding off on abx for now check CXR UA negative for UTI Plan Chronic diarrhea for 3 weeks. Patient has been taking Imodium at home, states that he has not had any bowel movement in 4 days now. No signs of bowel obstruction on CT taken today. He is passing flatus. Should diarrhea recur, ordered for C. difficile PCR, fecal fat, stool lactoferrin and stool culture. Patient reports that he has been eating store-bought salad mixes following which she has developed diarrhea recently. No further imodium until infectious diarrhea can be ruled out DVT prophylaxis: Heparin 5000 every 12 hours Full code /11/25/2023 iv fluids stopped. encourage oral hydration will advance diet to gi soft at this time c/diff neg stool studies pending lactoferrin elevated ct at admission did not show bowel obstruction consult nephrology Attestations 2 Medical Necessity Statement*: mine, diarrhea, pancreatitis Diagnoses Acute pancreatitis K85.90 Nonrheumatic mitral valve regurgitation I34.0 Cardiac valve disease etiology: nonrheumatic MINE (acute kidney injury) N17.9 Leukocytosis D72.829
--- NOTE | 2023-11-25 16:42 | P.CONIM_ITS ---
Providers/Reason For Consult 2 Consulting Physician/Specialty*: kommana/nephrology Reason for Consult*: Acute on CKD Attending Physician: Deanna Reynolds MD Primary Care Provider: Nick Bello MD History of Present Illness History of Present Illness Tarik Pink is a 88 year old male Patient is a 88-year-old male with past medical history of hypertension dyslipidemia mitral regurg, diabetes presented to the emergency department due to generalized weakness.. Recently was treated for viral gastroenteritis. He also complained of continued abdominal discomfort and nausea. Noted to have elevated creatinine of 2.21 previously about a year ago with creatinine was 1.4. Patient is unaware of having CKD. In the emergency department vital signs are stable,Lbs sig for elevated WBC 17, Na 132. He currently denies any complaints. Review of Systems 2 Narrative: negative Medications/Allergies Home Medications Medication Instructions Recorded Confirmed Last Taken Type coenzyme Q10 75 mg capsule (Ultra 75 mg PO DAILY 02/23/20 11/24/23 11/23/23 History CoQ10) multivitamin 1 tab PO DAILY 11/05/20 11/24/23 11/23/23 08:00 History ondansetron 4 mg disintegrating 4 mg PO Q6H PRN nausea and 11/12/23 11/24/23 Unknown Rx tablet vomiting #14 tabs carvedilol 3.125 mg tablet See Rx Instructions .Route 11/23/23 11/24/23 11/23/23 08:00 Rx .COMPLEX #180 tabs diclofenac sodium 1 % topical gel See Rx Instructions .Route 11/24/23 11/24/23 Unknown History .COMPLEX PRN arthritis lisinopril 40 mg tablet 40 mg PO DAILY #30 tabs 11/24/23 Unknown Rx Allergies Allergy/AdvReac Type Severity Reaction Status Date / Time sodium chloride for Allergy increases Verified 11/23/23 21:20 inhalation b/p [From Saline] sodium chloride AdvReac raised Verified 11/23/23 21:20 blood pressure really high Current Medications Generic Name Dose Route Start Last Admin Trade Name Freq PRN Reason Stop Dose Admin Carvedilol 3.125 mg 11/24/23 09:00 11/25/23 09:53 Carvedilol 3.125 Mg Tablet PO 3.125 mg BID LUIS Administration Heparin Sodium (Porcine) 5,000 unit 11/24/23 09:00 11/25/23 09:53 Heparin 5,000 Unit/Ml Inj 1 Ml SUBCUT 5,000 unit Q12H LUIS Administration Pantoprazole Sodium 40 mg 11/24/23 09:00 11/25/23 09:[address] 40 Mg Tablet PO 40 mg DAILY LUIS Administration PFSH Acute 2 PFSH: Medical History Chronic back pain Lower GI bleed Prediabetes Mitral regurgitation H/O [place] spotted fever Hyperlipidemia Enrolled in chronic care management Hypertension Surgical History H/O cataract extraction No pertinent past surgical history Family History Other CAD (coronary artery disease) Cancer Social History Smoking and tobacco/nicotine status: never used tobacco/nicotine Alcohol intake: current Alcohol intake frequency: few times a week Alcohol type: beer Substance/Drug Use: never Lives independently: Yes Household members: spouse Marital status: Current occupational status: retired Do you think of yourself as: Straight/Heterosexual Current gender identity: Male Vitals/I&O/Wt Last Vital Signs Temp 97.9 F 11/25/23 15:51 Pulse 72 11/25/23 15:51 Resp 16 11/25/23 15:51 BP 144/83 11/25/23 15:51 Pulse Ox 97 11/25/23 15:51 O2 Del Method Room Air 11/25/23 15:51 11/25/23 11/25/23 11/25/23 06:59 14:59 22:59 Intake Total 959.167 / 2059.167 1074 / 1074 Output Total 200 / 200 Balance 759.167 / 3166.384 5968 / 1074 Weight last 48 hrs Weight 96.887 kg Weight 93.44 kg Weight 93.44 kg Physical Exam 2 Narrative: awake , alert Heent S1S2 RRR per report Lungs clear per report No edema Data 11/25/23 05:21 11/25/23 05:21 Micro: Microbiology 11/23/23 22:21 Blood Culture - Preliminary Blood NEGATIVE TO DATE 11/23/23 22:10 Blood Culture - Preliminary Blood NEGATIVE TO DATE 11/24/23 12:02 Stool Lactoferrin - Final Stool A&P Assessment and plan (1) Chronic back pain: (2) MINE (acute kidney injury): Plan 1. Acute on chronic kidney disease stage III: Baseline creatinine in the mid 1 range now has an MINE with a creatinine of 2.2, possible some progression of CKD and MINE component due to recent illness/viral gastroenteritis and dehydration. No obstruction on CT. 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 Continue to hold lisinopril and HCTZ at discharge. 2. Hyponatremia: Hypovolemic likely, monitor 3. Chronic diarrhea x 3 weeks now, improved 4. History of hypertension, holding lisinopril and HCTZ, blood pressure in the 140s range monitor Patient evaluated using audiovisual cart. Time spent 40 minutes. Consult Attestations 2 Medical Necessity Statement: per raquel Coding Level of Care Code Acute Code for [facility] Fwd Diagnoses Chronic back pain M54.9; G89.29 MINE (acute kidney injury) N17.9
[2023-11-26] VITALS: BP 121/61; PULSE 70; RESP 18; TEMP 36.7; O2SAT 94
--- NOTE | 2023-11-26 02:48 | PC.NURSE ---
Patient educated to void in urinal for accurate urinary output measurement. Patient states the last time I tried to pee in that thing, I ended up going in the floor.
[2023-11-26 04:00] VITALS: BP 119/58; PULSE 92; RESP 17; TEMP 36.8; O2SAT 93
[2023-11-26 06:18] LABS: Basophils # 0.1 10^3/uL (0.0-0.1); Basophils % 0.4 %; Eosinophils # 0.2 10^3/uL (0.0-0.8); Eosinophils % 1.3 %; Lymphocytes # 1.3 10^3/uL (0.8-4.8); Mean Corpuscular HGB Conc 32.9 g/dL (30-55); Mean Corpuscular Hemoglobin 29.3 pg (27-33); Mean Corpuscular Volume 88.9 fl (82-101); Mean Platelet Volume 9.8 fL (7.4-10.4); Monocytes % 7.8 %; Neutrophils # 9.89 10^3/uL (1.8-7.7); Neutrophils % 79.5 %; Nucleated Red Blood Cells % 0 %; Platelet Count 272 10^3/cmm (157-399); Red Blood Count 4.61 10^6/uL (3.85-5.65); Red Cell Distribution Width 14.2 % (12.1-15.1); White Blood Count 12.44 10^3/uL (3.29-11.43)
[2023-11-26 06:38] LABS: Anion Gap 14.7 (5-19); Blood Urea Nitrogen 37 mg/dL (8-23); Calcium 8.4 mg/dL (8.5-10.5); Carbon Dioxide 24 mmol/L (22-29); Chloride 105 mmol/L (98-107); Creatinine Clr Calc Pharmacy 29.3283; Glucose 126 mg/dL (65-115); Magnesium 1.5 mg/dL (1.7-2.3); Osmolality Calculated 300 mOsm/kg (285-295); Potassium 3.7 mmol/L (3.5-5.1); Sodium 140 mmol/L (136-145)
[2023-11-26 07:55] VITALS: BP 151/72; PULSE 75; RESP 16; TEMP 36.5; O2SAT 91
[2023-11-26] MEDS: heparin 5,000 unit/mL INJ 1 mL 5000 UNIT SUBCUT (08:12)
[2023-11-26] MEDS: pantoprazole DR 40 mg Tablet PO (08:12)
--- NOTE | 2023-11-26 08:37 | P.PN_ITS ---
Subjective 2 Subjective: no new c/o Medications: Reviewed: Yes Vitals/I&O/Wt Last Vital Signs Temp 97.7 F 11/26/23 07:55 Pulse 75 11/26/23 07:55 Resp 16 11/26/23 07:55 BP 151/72 11/26/23 07:55 Pulse Ox 91 11/26/23 07:55 O2 Del Method Room Air 11/26/23 07:55 11/25/23 11/26/23 11/26/23 22:59 06:59 14:59 Intake Total 360 / 1434 240 / 240 Balance 360 / 1434 240 / 240 Weight last 48 hrs Weight 97.522 kg Weight 96.887 kg Physical Exam 2 Narrative: awake , alert Heent S1S2 RRR per report Lungs clear per report No edema Data 11/26/23 04:43 11/26/23 04:43 A&P Assessment and plan (1) MINE (acute kidney injury): Plan 1. Acute on chronic kidney disease stage III: Baseline creatinine in the mid 1 range now has an MINE with a creatinine of 2.2, possible some progression of CKD and MINE component due to recent illness/viral gastroenteritis and dehydration. No obstruction on CT. 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 Continue to hold lisinopril and HCTZ at discharge. 2. Hyponatremia: Hypovolemic likely, monitor 3. Chronic diarrhea x 3 weeks now, improved 4. History of hypertension, holding lisinopril and HCTZ, blood pressure in the 140s range monitor Patient evaluated using audiovisual cart. Time spent 40 minutes. Attestations 2 Medical Necessity Statement*: per medicine Coding Level of Care Code Acute Code for [facility] Diagnoses MINE (acute kidney injury) N17.9
[2023-11-26] MEDS: carvedilol 3.125 mg Tablet PO (09:35)
--- NOTE | 2023-11-26 10:01 | P.DS_ITS ---
Discharge Providers Date of Admission: 11/24/23 03:21 Date of Discharge: November 26, 2023 Attending Provider at Admission: Renae Khan MD Attending Provider at Discharge: Deanna Reynolds MD Primary Care Provider: Nick Bello MD Diagnoses at Discharge Discharge Diagnosis (1) MINE (acute kidney injury): Status: Acute Reason for Visit Reason for Visit: pain in abd. no bm 4days. severe diareaha lst wk Hospital Course Hospital Course Patient was admitted for abdominal pain nausea vomiting. CT abdomen pelvis showed pancreatitis. He also had an MINE on admission and was seen by nephrology. Patient has to follow-up with nephrology as an outpatient. Held hydrochlorothiazide and lisinopril at discharge. Amlodipine ordered at discharge for blood pressure. Diarrhea resolved during hospitalization. C. difficile negative. Patient was able to tolerate a GI soft diet prior to discharge and also had 2 bowel movements. He stated he was back to his baseline. Patient discharged home in stable condition to follow-up with his primary care doctor as an outpatient. Physical Exam Narrative: General: No acute distress, AO x3 HEENT: PERRLA, pupils bilaterally equal and reactive, pallors not present Chest: Normal vesicular breath sounds, no added sounds, equal good air entry bilaterally CVS: S1-S2 regular, no murmurs, no tachycardia, no gallops, no rubs Abdomen: Soft, nontender, no organomegaly, bowel sounds present Neuro: No focal deficits, no facial deformity, AO x3, power 5/5 in all limbs Discharge Data Studies Completed and Pending Completed Studies During Hospitalization Category Date Time Status CT abdomen pelvis wo con [id number] Stat Cat Scan 11/23/23 23:40 Completed CXRP [XR chest 1V portable [id number]] Routine Exams 11/24/23 05:41 Completed Pending at discharge Category Date Time Status Blood Culture Stat Lab 11/23/23 22:21 Results Fecal Fat, Qualitative Routine Lab 11/24/23 12:02 Received Stool Culture - Enteric [Salmonella / Shigella / Campy] Lab 11/24/23 12:02 Received Routine Radiology Impressions Abdomen/Pelvis CT 11/23/23 23:40 IMPRESSION: There is diffuse peripancreatic fat stranding which may represent a mild acute pancreatitis. No evidence of necrosis or acute pancreatic fluid collections. COMMENTS: Consistent with the [place] [employer] [place] [employer]'s Incidental Findings Committee white paper (J Am Luiz Radiol 2018): Any incidental renal lesion less than 1 cm or classified as too small to characterize, or any incidental cystic renal lesion characterized as simple-appearing, is likely benign. No follow-up imaging is recommended for these lesions per consensus recommendations based on imaging criteria. Chest X-Ray 11/24/23 05:41 IMPRESSION: 1. No pneumonia. 2. No fluid overload or pulmonary congestion. 3. Ectatic thoracic aorta with calcified plaque. Laboratory Results WBC 12.44 10^3/uL (3.29-11.43) H 11/26/23 04:43 RBC 4.61 10^6/uL (3.85-5.65) 11/26/23 04:43 Hgb 13.50 g/dL (11.27-16.99) 11/26/23 04:43 Hct 41.0 % (37-53) 11/26/23 04:43 MCV 88.9 fl (82-101) 11/26/23 04:43 MCH 29.3 pg (27-33) 11/26/23 04:43 MCHC 32.9 g/dL (30-55) 11/26/23 04:43 RDW 14.2 % (12.1-15.1) 11/26/23 04:43 Plt Count 272 10^3/cmm (157-399) 11/26/23 04:43 MPV 9.8 fL (7.4-10.4) 11/26/23 04:43 Neut % (Auto) 79.5 % 11/26/23 04:43 Lymph % (Auto) 10.0 % 11/26/23 04:43 [place] % (Auto) 7.8 % 11/26/23 04:43 Eos % (Auto) 1.3 % 11/26/23 04:43 Baso % (Auto) 0.4 % 11/26/23 04:43 Neut # (Auto) 9.89 10^3/uL (1.8-7.7) H 11/26/23 04:43 Lymph # (Auto) 1.3 10^3/uL (0.8-4.8) 11/26/23 04:43 [place] # (Auto) 1.0 10^3/uL (0.2-0.9) H 11/26/23 04:43 Eos # (Auto) 0.2 10^3/uL (0.0-0.8) 11/26/23 04:43 Baso # (Auto) 0.1 10^3/uL (0.0-0.1) 11/26/23 04:43 Nucleated RBC % (auto) 0 % 11/26/23 04:43 Nucleated RBCs # 0.0 /100WBC 11/26/23 04:43 Sodium 140 mmol/L (136-145) 11/26/23 04:43 Potassium 3.7 mmol/L (3.5-5.1) 11/26/23 04:43 Chloride 105 mmol/L (98-107) 11/26/23 04:43 Carbon Dioxide 24 mmol/L (22-29) 11/26/23 04:43 Anion Gap 14.7 (5-19) 11/26/23 04:43 BUN 37 mg/dL (8-23) H 11/26/23 04:43 Creatinine 1.9 mg/dL (0.7-1.2) H 11/26/23 04:43 GFR Calculation Not Reportable 11/26/23 04:43 Glucose 126 mg/dL (65-115) H 11/26/23 04:43 Calculated Osmolality 300 mOsm/kg (285-295) H 11/26/23 04:43 Lactic Acid 1.1 mmol/L (0.5-2.2) 11/23/23 22:50 Calcium 8.4 mg/dL (8.5-10.5) L 11/26/23 04:43 Magnesium 1.5 mg/dL (1.7-2.3) L 11/26/23 04:43 Total Bilirubin 0.4 mg/dL (0.15-1.2) 11/25/23 05:21 AST 9 U/L (0-40) 11/25/23 05:21 ALT 6 U/L (0-41) 11/25/23 05:21 Alkaline Phosphatase 46 U/L (40-130) 11/25/23 05:21 C-Reactive Protein 199.4 mg/L (0.0-4.9) H 11/23/23 22:50 NT-Pro-B Natriuret Pep 3325 pg/mL (0-450) H 11/23/23 22:50 Total Protein 5.5 g/dL (6.6-8.7) L 11/25/23 05:21 Albumin 3.0 g/dL (3.5-5.2) L 11/25/23 05:21 Globulin 2.5 g/dL (1.3-4.6) 11/25/23 05:21 Triglycerides 100 mg/dL (0-150) 11/23/23 22:50 Lipase 381 U/L (13-60) H 11/23/23 22:50 Urine Color Yellow (Yellow) 11/23/23 21:52 Urine Appearance Clear (CLEAR) 11/23/23 21:52 Urine pH 5.0 (5-7) 11/23/23 21:52 Ur Specific [place] 1.015 (1.005-1.030) 11/23/23 21:52 Urine Protein 1+ (Negative) A 11/23/23 21:52 Urine Glucose (UA) Negative (Normal) 11/23/23 21:52 Urine Ketones Negative (Negative) 11/23/23 21:52 Urine Blood Negative (Negative) 11/23/23 21:52 Urine Nitrate Negative (Negative) 11/23/23 21:52 Urine Bilirubin Negative (Negative) 11/23/23 21:52 Urine Urobilinogen 1.0 mg/dL (Negative) 11/23/23 21:52 Ur Leukocyte Esterase Negative (Negative) 11/23/23 21:52 Urine RBC 0-2 /hpf (0-2) 11/23/23 21:52 Urine WBC 0-5 /hpf (0-5) 11/23/23 21:52 Ur Squamous Epith Cells 0-5 /hpf (0-5) 11/23/23 21:52 Amorphous Sediment Not Reportable 11/23/23 21:52 Urine Bacteria None seen /hpf (NONE) 11/23/23 21:52 Hyaline Casts 7.42 /lpf 11/23/23 21:52 C. difficile (PCR) Negative (Negative) 11/24/23 12:02 Coronavirus (PCR) Negative (Negative) 11/23/23 21:48 Influenza A (PCR) Negative (Negative) 11/23/23 21:48 Influenza Type B (PCR) Negative (Negative) 11/23/23 21:48 RSV (PCR) Negative (Negative) 11/23/23 21:48 Vitals Last Vital Signs Temp 97.7 F 10/17/24 07:55 Pulse 75 11/26/23 07:55 Resp 16 11/26/23 07:55 BP 151/72 11/26/23 07:55 Pulse Ox 91 11/26/23 07:55 O2 Del Method Room Air 11/26/23 07:55 Discharge Plan Discharge Patient Disposition: Home Condition: Stable Prescriptions: New amlodipine 5 mg tablet 5 mg PO DAILY Qty: 30 0RF Continued Ultra CoQ10 75 mg capsule 75 mg PO DAILY multivitamin Tablet 1 tab PO DAILY carvedilol 3.125 mg tablet See Rx Instructions .ROUTE .COMPLEX Qty: 180 3RF Dose Instruction: TAKE 1 TABLET BY MOUTH TWICE DAILY Rx Instructions: TAKE 1 TABLET BY MOUTH TWICE DAILY ondansetron 4 mg tablet,disintegrating 4 mg PO Q6H PRN (Reason: nausea and vomiting) Qty: 14 0RF diclofenac sodium 1 % Gel See Rx Instructions .ROUTE .COMPLEX PRN (Reason: arthritis) Rx Instructions: apply 2 g topically as needed ;apply to single elbow, wrist or hand; for hand includes palm/fingers/back of hand Held lisinopril 40 mg tablet 40 mg PO DAILY Qty: 30 0RF Hold Instructions: MINE, see pcp Discharge Orders: Discharge Order (Routine); Ordered 11/26/23 Ordered By: Deanna Reynolds Other Ambulatory Orders: Basic Metabolic Panel (Routine) Timeframe: 4 Days Facility: [facility] - Location: Lab - Main Lab Ordered By: Deanna Reynolds Complete Blood Count w/Auto (Routine) Timeframe: 4 Days Location: Determined by Patient Ordered By: Deanna Reynolds Referrals: Hadley Baires MD [Referring] - 1 week (MINE, CKD We have notified your physician's clinic of the need for a follow-up appointment to be scheduled. If you have not heard from them within the next 2 business days, please call them directly. ) Nick Bello MD [Primary Care Provider] - 4-7 days (We have notified your physician's clinic of the need for a follow-up appointment to be scheduled. If you have not heard from them within the next 2 business days, please call them directly. ) Discharge Diet: Cardiac Discharge Activity: Resume usual activity Patient Instructions: Amlodipine (By mouth), Pancreatitis (GEN), Opioid Safety Discharge Attestations Time Spent in Discharge Care*: greater than 30 min Quality Metrics Clinical Quality Measures [ No reported AMI, CVA or VTE this stay] Coding Level of Care Code Acute Code for [facility] Diagnoses MINE (acute kidney injury) N17.9
[2023-11-26 11:24] VITALS: BP 144/85; PULSE 63; RESP 15; TEMP 36.3; O2SAT 90
[2023-11-29 22:34] LABS: Fecal Fat, Qualitative Normal (Normal)
== END 2023-11-26 12:48 | disposition home or self-care (01) | DRG 439 ==
LOC: ER 11-24 02:33 → MEDSURG 11-24 03:21
PROVIDERS: Emergency Medicine; Admitting Provider Student in an Organized Health Care Education/Training Program; Emergency Provider Emergency Medicine; PCP Family Medicine; Visit Provider Internal Medicine
DX: K85.90 Acute pancreatitis without necrosis or infection, unspecified (principal); E87.1 Hypo-osmolality and hyponatremia; N17.9 Acute kidney failure, unspecified; I12.9 Hypertensive chronic kidney disease with stage 1 through stage 4 chronic kidney disease, or unspecified chronic kidney disease; N18.30 Chronic kidney disease, stage 3 unspecified; R73.03 Prediabetes; I34.0 Nonrheumatic mitral (valve) insufficiency; E86.0 Dehydration; K52.9 Noninfective gastroenteritis and colitis, unspecified
CPT/HCPCS: 0241U; 36415; 71045; 74176; 80048; 80053; 81001; 82705; 83036; 83605; 83630; 83690; 83735; 83880; 84478; 85025; 86140; 87040; 87045; 87427; 87449; 87493; 96372; 99285; J1644; J7030

== ENCOUNTER 2024-01-01 10:46 | Outpatient (CLI) | payer MEDICARE, OTHER, SELFPAY ==
[2024-01-01 11:45] LABS: Anion Gap 13.2 (5-19); Blood Urea Nitrogen 17 mg/dL (8-23); Calcium 8.6 mg/dL (8.5-10.5); Carbon Dioxide 29 mmol/L (22-29); Chloride 101 mmol/L (98-107); Glucose 102 mg/dL (65-115); Osmolality Calculated 290 mOsm/kg (285-295); Potassium 4.2 mmol/L (3.5-5.1); Sodium 139 mmol/L (136-145)
== END 2024-01-01 10:47 | disposition home or self-care (01) ==
LOC: LAB 10:50
PROVIDERS: PCP Family Medicine
DX: N17.9 Acute kidney failure, unspecified (principal)
CPT/HCPCS: 36415; 80048

== ENCOUNTER 2024-01-17 08:48 | Inpatient (IN) | payer MEDICARE, OTHER, SELFPAY ==
[2024-01-17] VITALS (60 sets, daily range): BP systolic 123–178; BP diastolic 61–117; PULSE 40–97; RESP 16–34; TEMP 36.6–36.8; O2SAT 86–98; BMI 42.7
--- NOTE | 2024-01-17 08:51 | ED_ITS ---
HPI - General Adult 2 General: Chief complaint: Shortness of Breath/Dyspnea Stated complaint: legs swollen Time Seen by Provider: 01/17/24 08:50 History of Present Illness: 88-year-old male presents emergency room with complaints of increasing shortness of breath orthopnea and increased swelling in his legs. No pain in the legs no chest discomfort. He has noticed significant orthopnea. No fever sweats or chills or productive cough history of chronic kidney disease and diabetes mellitus. Associated symptoms: Deny chest pain, dyspnea or rash Related Data Home Medications Medication Instructions Recorded Confirmed coenzyme Q10 75 mg capsule (Ultra 75 mg PO DAILY 02/23/20 01/17/24 CoQ10) multivitamin 1 tab PO DAILY 11/05/20 01/17/24 diclofenac sodium 1 % topical gel See Rx Instructions .Route 11/24/23 01/17/24 .COMPLEX PRN arthritis carvedilol 3.125 mg tablet 3.125 mg PO BID 01/17/24 01/17/24 Previous Rx's Medication Instructions Recorded ondansetron 4 mg disintegrating 4 mg PO Q6H PRN nausea and 11/12/23 tablet vomiting #14 tabs amlodipine 10 mg tablet 10 mg PO DAILY #30 tabs 12/10/23 Allergies Allergy/AdvReac Type Severity Reaction Status Date / Time No Known Allergies Allergy Verified 01/17/24 10:40 Review of Systems 2 Const: Denies: fever(s) or chills Card: Denies: chest pain Resp: Denies: dyspnea GI: Denies: abdominal pain : Denies: dysuria, urinary frequency or urinary urgency Musc: Denies: neck pain or back pain Skin/Breast: Denies: rash PFSH ED 2 PFSH: Medical History Chronic back pain Lower GI bleed Prediabetes Mitral regurgitation H/O [place] spotted fever Hyperlipidemia Enrolled in chronic care management Hypertension Surgical History H/O cataract extraction No pertinent past surgical history Family History Other CAD (coronary artery disease) Cancer Social History Smoking and tobacco/nicotine status: never used tobacco/nicotine Alcohol intake: current Alcohol intake frequency: few times a week Alcohol type: beer Substance/Drug Use: never Lives independently: Yes Household members: spouse Marital status: Current occupational status: retired Do you think of yourself as: Straight/Heterosexual Current gender identity: Male Physical Exam 2 Const: GENERAL APPEARANCE: cooperative ORIENTATION/CONSCIOUSNESS: Yes awake, Yes oriented to person, Yes oriented to place and Yes oriented to time HENMT: COMMON NORMALS: normocephalic, atraumatic and hearing grossly normal bilaterally HEAD & SCALP: normocephalic and atraumatic Resp: COMMON NORMALS: normal respiratory effort, No retractions and No use of accessory muscles AUSCULTATION: crackles Cardio: COMMON NORMALS: regular rate, regular rhythm and No murmurs present (Cardio) RATE: regular rate RHYTHM: regular rhythm GI: COMMON NORMALS: Soft to palpation and No hepatosplenomegaly present A USCULTATION: Yes normoactive bowel sounds PALPATION: Yes Soft to palpation, No Tenderness to palpation present (GI), No Guarding due to palpation present (GI) and Yes No hepatosplenomegaly present Extremity: OTHER: 3+ edema lower extremities pitting Neuro: SENSORIUM/ORIENTATION: Yes oriented to person, Yes oriented to place and Yes oriented to time Skin: COMMON NORMALS: no rashes or lesions noted GENERAL SKIN EXAM: no rashes or lesions noted Course 2 Vital Signs: Vital signs: Vital Signs Temperature 97.9 F 01/17/24 08:59 Pulse Rate 62 01/17/24 16:15 Respiratory Rate 19 H 01/17/24 16:15 Blood Pressure 160/88 01/17/24 16:15 Pulse Oximetry 92 01/17/24 16:15 Oxygen Delivery Me thod Nasal Cannula 01/17/24 15:03 Oxygen Flow Rate 4 01/17/24 15:03 [facility] - General Adult Medical Decision Making Decompensated acute congestive heart failure patient has been given Lasix he is requiring 4 to 5 L of oxygen which she normally does not use any oxygen. He denies any chest pain at this time will admit for congestive heart failure discussed with hospitalist orders written Medical Records I reviewed the patient's medical records. Lab Data I reviewed the patient's lab results. 01/17/24 09:13 01/17/24 09:13 Radiology Impressions Chest X-Ray 01/17/24 09:19 IMPRESSION: 1. Cardiomegaly. 2. Low lung volumes. 3. Bilateral perihilar and basilar infiltrates and effusions worse on the left. There has been interval worsening when compared to prior exam. Laboratory Results WBC 8.61 10^3/uL (3.29-11.43) 01/17/24 09:13 RBC 4.42 10^6/uL (3.85-5.65) 01/17/24 09:13 Hgb 12.90 g/dL (11.27-16.99) 01/17/24 09:13 Hct 40.8 % (37-53) 01/17/24 09:13 MCV 92.3 fl (82-101) 01/17/24 09:13 MCH 29.2 pg (27-33) 01/17/24 09:13 MCHC 31.6 g/dL (30-55) 01/17/24 09:13 RDW 14.8 % (12.1-15.1) 01/17/24 09:13 Plt Count 258 10^3/cmm (157-399) 01/17/24 09:13 MPV 9.5 fL (7.4-10.4) 01/17/24 09:13 Neut % (Auto) 71.0 % 01/17/24 09:13 Lymph % (Auto) 16.0 % 01/17/24 09:13 [place] % (Auto) 11.0 % 01/17/24 09:13 Eos % (Auto) 0.9 % 01/17/24 09:13 Baso % (Auto) 0.6 % 01/17/24 09:13 Neut # (Auto) 6.11 10^3/uL (1.8-7.7) 01/17/24 09:13 Lymph # (Auto) 1.4 10^3/uL (0.8-4.8) 01/17/24 09:13 [place] # (Auto) 1.0 10^3/uL (0.2-0.9) H 01/17/24 09:13 Eos # (Auto) 0.1 10^3/uL (0.0-0.8) 01/17/24 09:13 Baso # (Auto) 0.1 10^3/uL (0.0-0.1) 01/17/24 09:13 Nucleated RBC % (auto) 0 % 01/17/24 09:13 Nucleated RBCs # 0.0 /100WBC 01/17/24 09:13 Sodium 137 mmol/L (136-145) 01/17/24 09:13 Potassium 3.6 mmol/L (3.5-5.1) 01/17/24 09:13 Chloride 98 mmol/L (98-107) 01/17/24 09:13 Carbon Dioxide 26 mmol/L (22-29) 01/17/24 09:13 Anion Gap 16.6 (5-19) 01/17/24 09:13 BUN 24 mg/dL (8-23) H 01/17/24 09:13 Creatinine 1.2 mg/dL (0.7-1.2) 01/17/24 09:13 GFR Calculation Not Reportable 01/17/24 09:13 Glucose 125 mg/dL (65-115) H 01/17/24 09:13 Calculated Osmolality 290 mOsm/kg (285-295) 01/17/24 09:13 Calcium 9.4 mg/dL (8.5-10.5) 01/17/24 09:13 Magnesium 1.8 mg/dL (1.7-2.3) 01/17/24 09:13 Total Bilirubin 0.7 mg/dL (0.15-1.2) 01/17/24 09:13 AST 15 U/L (0-40) 01/17/24 09:13 ALT 8 U/L (0-41) 01/17/24 09:13 Alkaline Phosphatase 80 U/L (40-130) 01/17/24 09:13 Troponin T Baseline 30 ng/L (0-15) H 01/17/24 09:13 NT-Pro-B Natriuret Pep 2076 pg/mL (0-450) H 01/17/24 09:13 Total Protein 7.2 g/dL (6.6-8.7) 01/17/24 09:13 Albumin 3.8 g/dL (3.5-5.2) 01/17/24 09:13 Globulin 3.4 g/dL (1.3-4.6) 01/17/24 09:13 Lipase 23 U/L (13-60) 01/17/24 09:13 Procalcitonin 0.09 ng/mL (0-0.5) 01/17/24 09:13 All radiology interpretation(s) finalized by discharge Discharge Plan Discharge Patient Disposition: Admitted As Inpatient Admit Provider: Deanna Reynolds Clinical Impression: Heart failure, CKD (chronic kidney disease), Hypertension Condition: Stable Coding Level of Care Code ED [employer] Architect for Yun Pope
--- NOTE | 2024-01-17 09:15 | ECG_ITS ---
iPeen Test Date: 2024-01-17 Pat Name: Tarik Pink Department: Room: Gender: Male [employer]: : 1935 Requested By: Roberto Lovelace Order Number: [id number] Reading MD: ANICETO HART Measurements Intervals [place] Rate: 86 P: 0 HI: 0 QRS: 159 QRSD: 99 T: -27 QT: 387 QTc: 463 Interpretive Statements ATRIAL FIBRILLATION WITH ABERRANT CONDUCTION OR VENTRICULAR PREMATURE COMPLEXES INDETERMINATE AXIS INCOMPLETE RIGHT BUNDLE BRANCH BLOCK [90+ ms QRS DURATION, TERMINAL R IN V1/V2, 40+ ms S IN I/aVL/V4/V5/V6] LEFT POSTERIOR FASCICULAR BLOCK [QRS AXIS > 109, INFERIOR Q] Compared to ECG 01/16/2021 21:37:22 Aberrant conduction of supraventricular beat(s) now present Indeterminate axis now present Incomplete right bundle-branch block now present Left posterior fascicular block now present Sinus tachycardia no longer present Intraventricular conduction delay no longer present Electronically Signed On 01-18-2024 16:10:37 WIRELESS OPERATOR by ANICETO HART [email or web address]
[2024-01-17 09:16] LABS: Basophils # 0.1 10^3/uL (0.0-0.1); Basophils % 0.6 %; Eosinophils # 0.1 10^3/uL (0.0-0.8); Eosinophils % 0.9 %; Hematocrit 40.8 % (37-53); Lymphocytes # 1.4 10^3/uL (0.8-4.8); Mean Corpuscular HGB Conc 31.6 g/dL (30-55); Mean Corpuscular Hemoglobin 29.2 pg (27-33); Mean Corpuscular Volume 92.3 fl (82-101); Mean Platelet Volume 9.5 fL (7.4-10.4); Neutrophils # 6.11 10^3/uL (1.8-7.7); Nucleated Red Blood Cells % 0 %; Platelet Count 258 10^3/cmm (157-399); Red Blood Count 4.42 10^6/uL (3.85-5.65); Red Cell Distribution Width 14.8 % (12.1-15.1); White Blood Count 8.61 10^3/uL (3.29-11.43)
--- NOTE | 2024-01-17 09:19 | XRR_ITS ---
PROCEDURE INFORMATION: Exam: XR Chest Exam date and time: 01/17/2024 9:26 AM Age: 88 years old Clinical indication: Cough and dyspnea; Additional info: Dyspnea/cough TECHNIQUE: Imaging protocol: Radiologic exam of the chest. Views: 1 view. COMPARISON: CR XR chest 1V portable [id number] 11/24/2023 8:18 AM FINDINGS: Lungs: There are low lung volumes with a degree of crowding of lung markings. There appear to be superimposed perihilar and basilar infiltrates worse on the left than on the right. Findings could reflect asymmetric pulmonary edema or could be inflammatory in origin. Pleural spaces: There are small pleural effusions. No pneumothorax is identified. Heart/Mediastinum: The heart is enlarged. Bones/joints: There are severe degenerative changes involving both shoulders. XR/XR chest 1V portable [id number] IMPRESSION: 1. Cardiomegaly. 2. Low lung volumes. 3. Bilateral perihilar and basilar infiltrates and effusions worse on the left. There has been interval worsening when compared to prior exam.
[2024-01-17] MEDS: FUROsemide 10 mg/mL SDV 4mL 40 MG IVP ×2 (09:31→14:47)
[2024-01-17 09:36] LABS: Alanine Aminotransferase 8 U/L (0-41); Albumin Level 3.8 g/dL (3.5-5.2); Alkaline Phosphatase 80 U/L (40-130); Anion Gap 16.6 (5-19); Aspartate Amino Transferase 15 U/L (0-40); Blood Urea Nitrogen 24 mg/dL (8-23); Calcium 9.4 mg/dL (8.5-10.5); Carbon Dioxide 26 mmol/L (22-29); Chloride 98 mmol/L (98-107); Creatinine Clr Calc Pharmacy 44.3986; Globulin 3.4 g/dL (1.3-4.6); Glucose 125 mg/dL (65-115); Osmolality Calculated 290 mOsm/kg (285-295); Potassium 3.6 mmol/L (3.5-5.1); Sodium 137 mmol/L (136-145); Total Bilirubin 0.7 mg/dL (0.15-1.2); Total Protein 7.2 g/dL (6.6-8.7)
[2024-01-17 09:43] LABS: Lipase 23 U/L (13-60); Magnesium 1.8 mg/dL (1.7-2.3)
[2024-01-17 09:48] LABS: Troponin(5th) Baseline 30 ng/L (0-15)
--- NOTE | 2024-01-17 10:14 | ECG_ITS ---
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1935 Requested By: Roberto Lovelace Order Number: [id number] Reading MD: ANICETO HART Measurements Intervals [place] Rate: 84 P: 0 CA: 0 QRS: 46 QRSD: 110 T: 2 QT: 407 QTc: 483 Interpretive Statements ATRIAL FIBRILLATION WITH ABERRANT CONDUCTION OR VENTRICULAR PREMATURE COMPLEXES INDETERMINATE AXIS INCOMPLETE RIGHT BUNDLE BRANCH BLOCK [90+ ms QRS DURATION, TERMINAL R IN V1/V2, 40+ ms S IN I/aVL/V4/V5/V6] ABNORMAL RHYTHM ECG Compared to ECG 01/17/2024 09:15:24 Left posterior fascicular block no longer present Electronically Signed On 01-18-2024 16:16:47 [employer] by ANICETO HART [id number]
[2024-01-17 11:58] LABS: Troponin 5 2HR 30.25 ng/L (0-15); Troponin 5 2HR Delta 0.25 ABS# (0-10)
--- NOTE | 2024-01-17 12:39 | PC.NURSE ---
report taken at 11 but transport delayed until 1200 from er admission started
--- NOTE | 2024-01-17 14:02 | P.HP_ITS ---
Providers/Chief Complaint 2 Admitting Physician: Deanna Reynolds MD Primary Care Provider: Nick Bello MD Chief Complaint: legs swollen History of Present Illness Tarik Pink is a 88 year old male With past medical history of hypertension hyperlipidemia mitral regurgitation chronic lower extremity swelling, prediabetes presented to the hospital today with complaint of weight gain. He states he has gained 5 pounds in the last 24 hours. He has a history of CHF. He is requiring oxygen in the ER however is not on any oxygen at home. 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 Has been having shortness of breath and coughing. Bringing up yellowish phlegm, denies a fever. Denies nausea vomiting diarrhea. Complains of bilateral lower extremity edema. He wants to be full code. Significant other available at bedside. Chest x-ray in ER shows bilateral perihilar and basilar infiltrates and effusions worse on the left. There has been interval worsening when compared to prior exam. Patient did have a 10 beat run of NSVT in ER. Medications/Allergies Home Medications Medication Instructions Recorded Confirmed Last Taken Type coenzyme Q10 75 mg capsule (Ultra 75 mg PO DAILY 02/23/20 01/17/24 11/23/23 History CoQ10) multivitamin 1 tab PO DAILY 11/05/20 01/17/24 11/23/23 08:00 History ondansetron 4 mg disintegrating 4 mg PO Q6H PRN nausea and 11/12/23 01/17/24 Unknown Rx tablet vomiting #14 tabs diclofenac sodium 1 % topical gel See Rx Instructions .Route 11/24/23 01/17/24 Unknown History .COMPLEX PRN arthritis amlodipine 10 mg tablet 10 mg PO DAILY #30 tabs 12/10/23 01/17/24 Unknown Rx carvedilol 3.125 mg tablet 3.125 mg PO BID 01/17/24 01/17/24 Unknown History Allergies Allergy/AdvReac Type Severity Reaction Status Date / Time No Known Allergies Allergy Verified 01/17/24 10:40 PFSH Acute 2 PFSH: Medical History Chronic back pain Lower GI bleed Prediabetes Mitral regurgitation H/O [place] spotted fever Hyperlipidemia Enrolled in chronic care management Hypertension Surgical History H/O cataract extraction No pertinent past surgical history Family History Other CAD (coronary artery disease) Cancer Social History Smoking and tobacco/nicotine status: never used tobacco/nicotine Alcohol intake: current Alcohol intake frequency: few times a week Alcohol type: beer Substance/Drug Use: never Lives independently: Yes Household members: spouse Marital status: Current occupational status: retired Do you think of yourself as: Straight/Heterosexual Current gender identity: Male Vitals/I&O/Wt Last Vital Signs Temp 97.9 F 01/17/24 08:59 Pulse 86 01/17/24 11:52 Resp 23 H 01/17/24 11:02 BP 177/88 01/17/24 11:52 Pulse Ox 92 01/17/24 11:52 O2 Del Method Nasal Cannula 01/17/24 12:33 O2 Flow Rate 4 01/17/24 08:59 01/16/24 01/17/24 01/17/24 22:59 06:59 14:59 Output Total 900 / 900 Balance -900 / -900 Weight last 48 hrs Weight 106.141 kg Weight 106.141 kg Physical Exam 2 Narrative: General: No acute distress, AO x3, on 4 L nasal cannula at this time saturating 95%. HEENT: PERRLA, pupils bilaterally equal and reactive, pallors not present Chest: Crackles bilaterally at bases, rest of lungs clear to auscultation. CVS: S1-S2 regular, no murmurs, no tachycardia, no gallops, no rubs Abdomen: Soft, nontender, no organomegaly, bowel sounds present Neuro: No focal deficits, no facial deformity, AO x3, Extremities: 3-4+ pitting edema bilateral lower extremities up to thighs. Data 01/17/24 09:13 01/17/24 09:13 A&P Assessment and plan (1) Hypertension: Qualifiers: Hypertension type: essential hypertension Qualified Code(s): I10 - Essential (primary) hypertension (2) Mitral regurgitation: Qualifiers: Cardiac valve disease etiology: nonrheumatic Qualified Code(s): I34.0 - Nonrheumatic mitral (valve) insufficiency (3) Hyperlipidemia: Qualifiers: Hyperlipidemia type: mixed hyperlipidemia Qualified Code(s): E78.2 - Mixed hyperlipidemia (4) Prediabetes: (5) CKD (chronic kidney disease): (6) Heart failure: Plan #Diastolic congestive heart failure exacerbation #Bilateral pitting edema up to thighs #Possible pneumonia #Acute hypoxia, dependent on supplemental oxygen 4 L #NSVT #Mitral regurgitation #Hyperlipidemia #Hypertension #Chronic kidney disease #Recent pancreatitis ? Continue diurese patient with Lasix 40 IV daily ? Placed on ceftriaxone azithromycin for empiric coverage ? Sputum Gram stain culture ? Wean off oxygen as able ? Check BNP ? Check echo. Last 1 was from 2022. ? Continue home medication amlodipine 10 daily, Coreg 3.125 twice daily ? Heparin SQ twice daily for DVT prophylaxis ? Check CBC CMP mag in a.m. ? Keep magnesium above 2 and potassium above 4 ? If patient continues to have NSVT episodes may consider placing on amiodarone. Continue to monitor. ? Placed on telemetry -Potassium 3.6 on admission, order potassium 40 oral x 1. -Troponins pending at this time, serial EKGs pending. 6-hour troponin pending, delta at 2 hours 0.25. ? Check procalcitonin ? EKG without any acute ischemic changes. Does show A-fib, rate controlled. Full code DVT prophylaxis: Heparin SQ twice daily PT Cardiac diet Attestations 2 Medical Necessity Statement*: Greater than 2 midnight stay for management of CHF exacerbation, patient requires IV diuresis and is currently requiring supplemental oxygen. Diagnoses Essential hypertension I10 Hypertension type: essential hypertension Nonrheumatic mitral valve regurgitation I34.0 Cardiac valve disease etiology: nonrheumatic Mixed hyperlipidemia E78.2 Hyperlipidemia type: mixed hyperlipidemia Prediabetes R73.03 CKD (chronic kidney disease) N18.9 Heart failure I50.9
--- NOTE | 2024-01-17 14:04 | USCV_ITS ---
JoesphTarik Age: 88 Gender: M : 1935 Exam Date: 01/17/2024 17:40 Ordering Phys: Deanna Reynolds MD Technologist: Axel Ring Exam Location: [facility] [place] Indication: HF BP: 146 / 96 HR: 72 Rhythm: Sinus Technical Quality: suboptimal MEASUREMENTS (Male / Female) Normal Values 2D ECHO LV Diastolic Diameter PLAX 3.5 cm 4.2 - 5.9 / 3.9 - 5.3 cm IVS Diastolic Thickness 1.1 cm 0.6 - 1.0 / 0.6 - 0.9 cm IVS Systolic Thickness 1.5 cm LVPW Diastolic Thickness 1.7 cm 0.6 - 1.0 / 0.6 - 0.9 cm LVPW Systolic Thickness 1.6 cm LVOT Diameter 2.0 cm LV Ejection Fraction 2D Teich 74.8 % LV Ejection Fraction MOD 4C 56.4 % LV Ejection Fraction MOD 2C 60.1 % LV Ejection Fraction 2C AL 59.1 % LA Diameter 4.4 cm RA Systolic Volume 4C AL 57.8 ml RA Systolic Volume 4C MOD 56.7 ml LA Sys Volume AL 70.3 cm cubed LA Sys Volume Index AL 31.7 cm cubed/m squared Aorta at Sinotubular Diameter 2.3 cm IVC Diameter 2.1 cm M-MODE LA Ao Ratio MM 0.9 AV Cusp Separation MM 1.3 cm DOPPLER AV Peak Velocity 115.0 cm/s LVOT Peak Velocity 83.0 cm/s AV Area Cont Eq vti 2.2 cm squared AV Area Cont Eq pk 2.3 cm squared MV Peak Velocity 155.0 cm/s MV Area PHT 5.6 cm squared Mitral E to A Ratio 2.3 TV Peak Velocity 305.7 cm/s TR Peak Velocity 313.0 cm/s TR Peak Gradient 39.2 mmHg TR Mean Velocity 280.0 cm/s TR Mean Gradient 32.2 mmHg TR Velocity Time Integral 85.8 cm PV Peak Velocity 100.0 cm/s RV Ejection Time 0.2 s FINDINGS Left Ventricle Normal left ventricular size, systolic function and wall thickness, with no regional wall motion abnormalities. Left ventricular ejection fraction is estimated at 55 %. Grade I/IV diastolic dysfunction (abnormal relaxation filling pattern), normal to mildly elevated filling pressures. Right Ventricle The right ventricle is normal in size and function. Right Atrium The right atrium is normal in size. Left Atrium Moderately increased left atrial size. Mitral Valve Severely thickened mitral valve. Severe mitral annular calcification. Severely thickened mitral valve. No mitral valve regurgitation. Aortic Valve Moderate aortic valve calcification. Mild aortic valve stenosis, mean gradient 2.8 mmHg, MAT 2.2 cm squared. No aortic valve regurgitation. Tricuspid Valve Structurally normal tricuspid valve without significant stenosis or regurgitation. Pulmonary artery systolic pressure is normal. Pulmonic Valve Structurally normal pulmonic valve without significant stenosis. There is no pulmonic regurgitation. Pericardium Normal pericardium without effusion. Aorta Normal ascending aorta dimension. IVC The inferior vena cava appears normal. CONCLUSIONS Normal left ventricular size, systolic function and wall thickness, with no regional wall motion abnormalities. Left ventricular ejection fraction is estimated at 55 %. Grade I/IV diastolic dysfunction (abnormal relaxation filling pattern), normal to mildly elevated filling pressures. Moderate aortic valve calcification. Mild aortic valve stenosis, mean gradient 2.8 mmHg, MAT 2.2 cm squared. No aortic valve regurgitation. Severely thickened mitral valve. Severe mitral annular calcification. Severely thickened mitral valve. No mitral valve regurgitation. Moderately increased left atrial size. There is no pericardial effusion. Right atrial pressure is around 5 mm of mercury. Solange Chau MD (Electronically Signed) Final Date: 17 January 2024 21:31 S
[2024-01-17 14:41] LABS: NT Pro B Type Natriuretic Pept 2076 pg/mL (0-450); Procalcitonin 0.09 ng/mL (0-0.5)
[2024-01-17] MEDS: potassium chloride ER 20 mEq Tablet 40 MEQ PO (14:48)
[2024-01-17] MEDS: heparin 5,000 unit/mL INJ 1 mL 5000 UNIT SUBCUT (14:48)
[2024-01-17] MEDS: cefTRIAXone 1,000 mg SDV 1000 MG IVP (14:48)
[2024-01-17] MEDS: water for injection-sterile 10 ML 1000 ML (15:07)
--- NOTE | 2024-01-17 15:19 | ECG_ITS ---
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1935 Requested By: Roberto Lovelace Order Number: [id number] Reading MD: ANICETO HART Measurements Intervals [place] Rate: 72 P: 0 AR: 0 QRS: -8 QRSD: 101 T: 28 QT: 386 QTc: 423 Interpretive Statements ATRIAL FIBRILLATION INDETERMINATE AXIS ABNORMAL RHYTHM ECG Compared to ECG 01/17/2024 10:14:56 Ventricular premature complex(es) no longer present Aberrant conduction of supraventricular beat(s) no longer present Incomplete right bundle-branch block no longer present Electronically Signed On 01-18-2024 16:15:57 ALUMINUM POURER by ANICETO HART [id number]
[2024-01-17 15:24] LABS: Lactic Sepsis W/Reflex 1.1 mmol/L (0.5-2.2)
[2024-01-17 15:25] LABS: Troponin 5 6HR 32.47 ng/L (0-15); Troponin 5 6HR Delta 2.47 ng/L (0-12)
[2024-01-17] MEDS: carvedilol 3.125 mg Tablet PO (16:55)
[2024-01-18] VITALS (98 sets, daily range): BP systolic 103–158; BP diastolic 54–103; PULSE 42–109; RESP 10–34; TEMP 36.4–37.7; O2SAT 86–98
[2024-01-18] MEDS: heparin 5,000 unit/mL INJ 1 mL 5000 UNIT SUBCUT ×2 (03:19→14:59)
[2024-01-18 05:33] LABS: Basophils # 0.1 10^3/uL (0.0-0.1); Basophils % 0.6 %; Eosinophils # 0.1 10^3/uL (0.0-0.8); Eosinophils % 0.9 %; Lymphocytes # 1.1 10^3/uL (0.8-4.8); Lymphocytes % 11.6 %; Mean Corpuscular HGB Conc 31.3 g/dL (30-55); Mean Corpuscular Hemoglobin 29.1 pg (27-33); Mean Corpuscular Volume 93.1 fl (82-101); Mean Platelet Volume 9.5 fL (7.4-10.4); Monocytes # 1.2 10^3/uL (0.2-0.9); Monocytes % 12.5 %; Neutrophils # 7.33 10^3/uL (1.8-7.7); Neutrophils % 74.2 %; Nucleated Red Blood Cells % 0 %; Platelet Count 226 10^3/cmm (157-399); Red Blood Count 4.19 10^6/uL (3.85-5.65); White Blood Count 9.87 10^3/uL (3.29-11.43)
[2024-01-18 05:49] LABS: Alanine Aminotransferase 7 U/L (0-41); Albumin Level 3.6 g/dL (3.5-5.2); Alkaline Phosphatase 70 U/L (40-130); Anion Gap 11.5 (5-19); Aspartate Amino Transferase 14 U/L (0-40); Blood Urea Nitrogen 24 mg/dL (8-23); Calcium 9.2 mg/dL (8.5-10.5); Carbon Dioxide 32 mmol/L (22-29); Chloride 99 mmol/L (98-107); Creatinine Clr Calc Pharmacy 44.3986; Globulin 3.2 g/dL (1.3-4.6); Glucose 112 mg/dL (65-115); Magnesium 1.8 mg/dL (1.7-2.3); Osmolality Calculated 293 mOsm/kg (285-295); Potassium 3.5 mmol/L (3.5-5.1); Sodium 139 mmol/L (136-145); Total Bilirubin 0.6 mg/dL (0.15-1.2); Total Protein 6.8 g/dL (6.6-8.7)
[2024-01-18 08:18] LABS: Glucose Point of Care 111 mg/dL (70-110)
[2024-01-18] MEDS: amlodipine 10 mg Tablet PO (08:41)
[2024-01-18] MEDS: azithromycin 250 mg Tablet 500 MG PO (08:41)
[2024-01-18] MEDS: carvedilol 3.125 mg Tablet PO ×2 (08:41→17:34)
[2024-01-18] MEDS: FUROsemide 10 mg/mL SDV 4mL 40 MG IVP (13:54)
[2024-01-18] MEDS: cefTRIAXone 1,000 mg SDV 1000 MG IVP (13:58)
--- NOTE | 2024-01-18 14:47 | P.PN_ITS ---
Subjective 2 Subjective: Seen this morning. 1700 urine output overnight. Shortness of breath is slightly improved however bilateral lower extremity edema still present Vitals/I&O/Wt Last Vital Signs Temp 98.3 F 01/18/24 08:30 Pulse 92 01/18/24 10:00 Resp 14 01/18/24 10:00 BP 116/54 01/18/24 10:00 Pulse Ox 94 01/18/24 10:00 O2 Del Method Nasal Cannula 01/18/24 09:53 O2 Flow Rate 4 01/18/24 09:53 01/17/24 01/18/24 01/18/24 22:59 06:59 14:59 Intake Total 310 / 310 480 / 790 Output Total 1300 / 2200 200 / 2400 250 / 250 Balance -990 / -1890 280 / -1610 -250 / -250 Weight last 48 hrs Weight 106.141 kg Weight 106.141 kg Physical Exam 2 Narrative: General: No acute distress, AO x3, on 4 L nasal cannula at this time saturating 95%. HEENT: PERRLA, pupils bilaterally equal and reactive, pallors not present Chest: Clear to auscultation bilaterally CVS: S1-S2 regular, no murmurs, no tachycardia, no gallops, no rubs Abdomen: Soft, nontender, no organomegaly, bowel sounds present Neuro: No focal deficits, no facial deformity, AO x3, Extremities: 3+ pitting edema bilateral lower extremities up to thighs. Data 01/18/24 05:11 01/18/24 05:11 A&P Assessment and plan (1) Hypertension: Qualifiers: Hypertension type: essential hypertension Qualified Code(s): I10 - Essential (primary) hypertension (2) Mitral regurgitation: Qualifiers: Cardiac valve disease etiology: nonrheumatic Qualified Code(s): I34.0 - Nonrheumatic mitral (valve) insufficiency (3) Hyperlipidemia: Qualifiers: Hyperlipidemia type: mixed hyperlipidemia Qualified Code(s): E78.2 - Mixed hyperlipidemia (4) Prediabetes: (5) CKD (chronic kidney disease): (6) Heart failure: Plan #Diastolic congestive heart failure exacerbation #Bilateral pitting edema up to thighs #Possible pneumonia #Acute hypoxia, dependent on supplemental oxygen 4 L #NSVT #Mitral regurgitation #Hyperlipidemia #Hypertension #Chronic kidney disease #Recent pancreatitis ? Continue diurese patient with Lasix 40 IV daily ? Placed on ceftriaxone azithromycin for empiric coverage ? Sputum Gram stain culture ? Wean off oxygen as able ? Check BNP ? Check echo. Last 1 was from 2022. ? Continue home medication amlodipine 10 daily, Coreg 3.125 twice daily ? Heparin SQ twice daily for DVT prophylaxis ? Check CBC CMP mag in a.m. ? Keep magnesium above 2 and potassium above 4 ? If patient continues to have NSVT episodes may consider placing on amiodarone. Continue to monitor. ? Placed on telemetry -Potassium 3.6 on admission, order potassium 40 oral x 1. -Troponins pending at this time, serial EKGs pending. 6-hour troponin pending, delta at 2 hours 0.25. ? Check procalcitonin ? EKG without any acute ischemic changes. Does show A-fib, rate controlled. Full code DVT prophylaxis: Heparin SQ twice daily PT Cardiac diet 01/18/2024 -Continue diuresis and supplementing potassium. ? Patient has had no other episodes of NSVT. Continue to monitor. ? Echo pending. Attestations 2 Medical Necessity Statement*: Greater than 2 midnight stay for management of CHF exacerbation, patient requires IV diuresis and is currently requiring supplemental oxygen. Diagnoses Essential hypertension I10 Hypertension type: essential hypertension Nonrheumatic mitral valve regurgitation I34.0 Cardiac valve disease etiology: nonrheumatic Mixed hyperlipidemia E78.2 Hyperlipidemia type: mixed hyperlipidemia Prediabetes R73.03 CKD (chronic kidney disease) N18.9 Heart failure I50.9
[2024-01-18] MEDS: potassium chloride ER 20 mEq Tablet 40 MEQ PO (14:58)
[2024-01-18] MEDS: methylPREDNISolone sod succ 40 mg/mL INJ IVP (17:34)
--- NOTE | 2024-01-18 18:11 | PC.NURSE ---
Shift SUmmary: Uneventful shift. Patient was up to a chair for most of the day. Total urine output: 1250. No noticeable change in edema.
[2024-01-19] VITALS (56 sets, daily range): BP systolic 112–148; BP diastolic 51–84; PULSE 67–109; RESP 2–26; TEMP 36.6–36.9; O2SAT 88–99
[2024-01-19] MEDS: heparin 5,000 unit/mL INJ 1 mL 5000 UNIT SUBCUT ×2 (02:09→15:10)
[2024-01-19 05:42] LABS: Hematocrit 38.7 % (37-53); Lymphocytes # 0.9 10^3/uL (0.8-4.8); Lymphocytes % 12.3 %; Mean Corpuscular HGB Conc 31.5 g/dL (30-55); Mean Corpuscular Hemoglobin 29.9 pg (27-33); Mean Corpuscular Volume 94.9 fl (82-101); Mean Platelet Volume 9.9 fL (7.4-10.4); Monocytes # 0.2 10^3/uL (0.2-0.9); Monocytes % 2.5 %; Neutrophils # 6.45 10^3/uL (1.8-7.7); Neutrophils % 84.7 %; Nucleated Red Blood Cells % 0 %; Platelet Count 225 10^3/cmm (157-399); Red Blood Count 4.08 10^6/uL (3.85-5.65); Red Cell Distribution Width 14.8 % (12.1-15.1); White Blood Count 7.62 10^3/uL (3.29-11.43)
[2024-01-19 06:11] LABS: Anion Gap 13.4 (5-19); Blood Urea Nitrogen 29 mg/dL (8-23); Calcium 9.4 mg/dL (8.5-10.5); Carbon Dioxide 30 mmol/L (22-29); Chloride 98 mmol/L (98-107); Creatinine Clr Calc Pharmacy 40.9526; Glucose 195 mg/dL (65-115); Magnesium 2.1 mg/dL (1.7-2.3); Osmolality Calculated 295 mOsm/kg (285-295); Potassium 4.4 mmol/L (3.5-5.1); Sodium 137 mmol/L (136-145)
[2024-01-19] MEDS: potassium chloride ER 20 mEq Tablet 40 MEQ PO (09:05)
[2024-01-19] MEDS: azithromycin 250 mg Tablet 500 MG PO (09:05)
[2024-01-19] MEDS: amlodipine 10 mg Tablet PO (09:05)
[2024-01-19] MEDS: carvedilol 3.125 mg Tablet PO ×2 (09:06→18:41)
[2024-01-19] MEDS: methylPREDNISolone sod succ 40 mg/mL INJ IVP (09:06)
[2024-01-19] MEDS: FUROsemide 10 mg/mL SDV 4mL 40 MG IVP (12:13)
--- NOTE | 2024-01-19 13:13 | P.PN_ITS ---
Subjective 2 Subjective: Seen today. Subjectively feels better, still requiring 3 L nasal cannula. 1.4 L negative since admission. Vitals/I&O/Wt Last Vital Signs Temp 98.5 F 01/19/24 08:45 Pulse 87 01/19/24 12:00 Resp 16 01/19/24 12:00 BP 141/74 01/19/24 12:00 Pulse Ox 98 01/19/24 12:00 O2 Del Method Nasal Cannula 01/19/24 12:00 O2 Flow Rate 3 01/19/24 12:00 01/18/24 01/19/24 01/19/24 22:59 06:59 14:59 Intake Total 760 / 760 980 / 980 Output Total 900 / 1150 450 / 1600 Balance -140 / -390 -450 / -840 980 / 980 Weight last 48 hrs Weight 106 kg Physical Exam 2 Narrative: General: No acute distress, AO x3, on 3 L nasal cannula at this time saturating 95%. HEENT: PERRLA, pupils bilaterally equal and reactive, pallors not present Chest: Clear to auscultation bilaterally CVS: S1-S2 regular, no murmurs, no tachycardia, no gallops, no rubs Abdomen: Soft, nontender, no organomegaly, bowel sounds present Neuro: No focal deficits, no facial deformity, AO x3, Extremities: 2+ pitting edema bilateral lower extremities up to knees. Data 01/19/24 04:44 01/19/24 04:44 Micro: Microbiology 01/19/24 06:45 Gram Stain - Final Sputum - Expectorated Sputum A&P Assessment and plan (1) Hypertension: Qualifiers: Hypertension type: essential hypertension Qualified Code(s): I10 - Essential (primary) hypertension (2) Mitral regurgitation: Qualifiers: Cardiac valve disease etiology: nonrheumatic Qualified Code(s): I34.0 - Nonrheumatic mitral (valve) insufficiency (3) Hyperlipidemia: Qualifiers: Hyperlipidemia type: mixed hyperlipidemia Qualified Code(s): E78.2 - Mixed hyperlipidemia (4) Prediabetes: (5) CKD (chronic kidney disease): (6) Heart failure: Plan #Diastolic congestive heart failure exacerbation #Bilateral pitting edema up to thighs #Possible pneumonia #Acute hypoxia, dependent on supplemental oxygen 4 L #NSVT #Mitral regurgitation #Hyperlipidemia #Hypertension #Chronic kidney disease #Recent pancreatitis ? Continue diurese patient with Lasix 40 IV daily ? Placed on ceftriaxone azithromycin for empiric coverage ? Sputum Gram stain culture ? Wean off oxygen as able ? Check BNP ? Check echo. Last 1 was from 2022. ? Continue home medication amlodipine 10 daily, Coreg 3.125 twice daily ? Heparin SQ twice daily for DVT prophylaxis ? Check CBC CMP mag in a.m. ? Keep magnesium above 2 and potassium above 4 ? If patient continues to have NSVT episodes may consider placing on amiodarone. Continue to monitor. ? Placed on telemetry -Potassium 3.6 on admission, order potassium 40 oral x 1. -Troponins pending at this time, serial EKGs pending. 6-hour troponin pending, delta at 2 hours 0.25. ? Check procalcitonin ? EKG without any acute ischemic changes. Does show A-fib, rate controlled. Full code DVT prophylaxis: Heparin SQ twice daily PT Cardiac diet 01/18/2024 -Continue diuresis and supplementing potassium. ? Patient has had no other episodes of NSVT. Continue to monitor. ? Echo shows EF 55%, grade 1.4 diastolic dysfunction. Rest of report in chart. Reviewed. ? Increase Lasix to 40 IV twice daily. ? Continue potassium supplementation Continue Solu-Medrol 40 daily Continue ceftriaxone 1 g daily. Continue azithromycin Patient's oxygen requirement may be secondary to pneumonia with a component of heart failure. He may need to go home on oxygen. Will transfer to floor today. Plan to discharge home in next 24 to 48 hours. Attestations 2 Medical Necessity Statement*: Continue to diurese and treat for pneumonia. Potential discharge in next 24 to 48 hours. Diagnoses Essential hypertension I10 Hypertension type: essential hypertension Nonrheumatic mitral valve regurgitation I34.0 Cardiac valve disease etiology: nonrheumatic Mixed hyperlipidemia E78.2 Hyperlipidemia type: mixed hyperlipidemia Prediabetes R73.03 CKD (chronic kidney disease) N18.9 Heart failure I50.9
[2024-01-19] MEDS: cefTRIAXone 1,000 mg SDV 1000 MG IVP (15:10)
--- NOTE | 2024-01-19 18:29 | PC.NURSE ---
Patient was taken by [facility] nurses to [facility].
[2024-01-20] VITALS (7 sets, daily range): BP systolic 137–145; BP diastolic 70–80; PULSE 73–88; RESP 16–18; TEMP 36.3–36.5; O2SAT 90–94
[2024-01-20] MEDS: FUROsemide 10 mg/mL SDV 4mL 40 MG IVP ×2 (00:28→11:33)
[2024-01-20] MEDS: heparin 5,000 unit/mL INJ 1 mL 5000 UNIT SUBCUT (02:39)
[2024-01-20 06:59] LABS: Basophils % 0.1 %; Hematocrit 36.9 % (37-53); Lymphocytes # 1.1 10^3/uL (0.8-4.8); Lymphocytes % 9.4 %; Mean Corpuscular HGB Conc 31.2 g/dL (30-55); Mean Corpuscular Hemoglobin 29.6 pg (27-33); Mean Corpuscular Volume 95.1 fl (82-101); Mean Platelet Volume 9.9 fL (7.4-10.4); Monocytes # 1.1 10^3/uL (0.2-0.9); Monocytes % 8.8 %; Neutrophils # 9.89 10^3/uL (1.8-7.7); Neutrophils % 81.3 %; Nucleated Red Blood Cells % 0 %; Platelet Count 255 10^3/cmm (157-399); Red Blood Count 3.88 10^6/uL (3.85-5.65); Red Cell Distribution Width 14.8 % (12.1-15.1); White Blood Count 12.16 10^3/uL (3.29-11.43)
[2024-01-20 07:13] LABS: Anion Gap 16.2 (5-19); Blood Urea Nitrogen 36 mg/dL (8-23); Calcium 9.1 mg/dL (8.5-10.5); Carbon Dioxide 28 mmol/L (22-29); Chloride 99 mmol/L (98-107); Creatinine Clr Calc Pharmacy 40.8052; Glucose 137 mg/dL (65-115); Magnesium 2.1 mg/dL (1.7-2.3); Osmolality Calculated 298 mOsm/kg (285-295); Potassium 4.2 mmol/L (3.5-5.1); Sodium 139 mmol/L (136-145)
[2024-01-20] MEDS: amlodipine 10 mg Tablet PO (07:36)
[2024-01-20] MEDS: azithromycin 250 mg Tablet 500 MG PO (07:36)
[2024-01-20] MEDS: potassium chloride ER 20 mEq Tablet 40 MEQ PO (07:36)
[2024-01-20] MEDS: carvedilol 3.125 mg Tablet PO (07:36)
[2024-01-20] MEDS: methylPREDNISolone sod succ 40 mg/mL INJ IVP (07:36)
--- NOTE | 2024-01-20 08:52 | PM.DCS ---
Discharge Providers Date of Admission: 01/17/24 10:06 Date of Discharge: January 20, 2024 Attending Provider at Admission: Deanna Reynolds MD Attending Provider at Discharge: Deanna Reynolds MD Primary Care Provider: Nick Bello MD Diagnoses at Discharge Discharge Diagnosis (1) Hypertension: Status: Chronic Qualifiers: Hypertension type: essential hypertension Qualified Code(s): I10 - Essential (primary) hypertension (2) Mitral regurgitation: Status: Acute Qualifiers: Cardiac valve disease etiology: nonrheumatic Qualified Code(s): I34.0 - Nonrheumatic mitral (valve) insufficiency (3) Hyperlipidemia: Status: Acute Qualifiers: Hyperlipidemia type: mixed hyperlipidemia Qualified Code(s): E78.2 - Mixed hyperlipidemia (4) Prediabetes: Status: Acute (5) CKD (chronic kidney disease): Status: Chronic (6) Heart failure: Status: Acute Reason for Visit Reason for Visit: legs swollen Hospital Course Hospital Course Patient was admitted for diastolic congestive heart failure exacerbation did have bilateral pitting edema up to thighs. Also evidence of chronic venous stasis. Was diuresed during hospitalization and eventually was back to room air. Was also diagnosed with possible pneumonia for which she was on antibiotics and sent home on oral at time of discharge. Patient did require oxygen supplementation during his stay however was back to room air at time of discharge. Discharged home in stable condition. Follow-up with cardiology as an outpatient. Physical Exam Narrative: General: No acute distress, AO x3, room air HEENT: PERRLA, pupils bilaterally equal and reactive, pallors not present Chest: Clear to auscultation bilaterally CVS: S1-S2 regular, no murmurs, no tachycardia, no gallops, no rubs Abdomen: Soft, nontender, no organomegaly, bowel sounds present Neuro: No focal deficits, no facial deformity, AO x3, Extremities: 1-2+ edema bilateral lower extremities, chronic venous stasis. Legs to improve significantly compared to admission. Discharge Data Studies Completed and Pending Completed Studies During Hospitalization Category Date Time Status XR chest 1V portable [id number] Stat Exams 01/17/24 09:19 Completed US echo complete [CV. echo complete* [id number]] Routine Ultrasound 01/17/24 14:04 Completed Pending at discharge Category Date Time Status Sputum Culture and Gram Stain Stat Lab 01/19/24 06:45 Results Radiology Impressions Chest X-Ray 01/17/24 09:19 IMPRESSION: 1. Cardiomegaly. 2. Low lung volumes. 3. Bilateral perihilar and basilar infiltrates and effusions worse on the left. There has been interval worsening when compared to prior exam. Laboratory Results WBC 12.16 10^3/uL (3.29-11.43) H 01/20/24 05:55 RBC 3.88 10^6/uL (3.85-5.65) 01/20/24 05:55 Hgb 11.50 g/dL (11.27-16.99) 01/20/24 05:55 Hct 36.9 % (37-53) L 01/20/24 05:55 MCV 95.1 fl (82-101) 01/20/24 05:55 MCH 29.6 pg (27-33) 01/20/24 05:55 MCHC 31.2 g/dL (30-55) 01/20/24 05:55 RDW 14.8 % (12.1-15.1) 01/20/24 05:55 Plt Count 255 10^3/cmm (157-399) 01/20/24 05:55 MPV 9.9 fL (7.4-10.4) 01/20/24 05:55 Neut % (Auto) 81.3 % 01/20/24 05:55 Lymph % (Auto) 9.4 % 01/20/24 05:55 Reynolds % (Auto) 8.8 % 01/20/24 05:55 Eos % (Auto) 0.0 % 01/20/24 05:55 Baso % (Auto) 0.1 % 01/20/24 05:55 Neut # (Auto) 9.89 10^3/uL (1.8-7.7) H 01/20/24 05:55 Lymph # (Auto) 1.1 10^3/uL (0.8-4.8) 01/20/24 05:55 Reynolds # (Auto) 1.1 10^3/uL (0.2-0.9) H 01/20/24 05:55 Eos # (Auto) 0.0 10^3/uL (0.0-0.8) 01/20/24 05:55 Baso # (Auto) 0.0 10^3/uL (0.0-0.1) 01/20/24 05:55 Nucleated RBC % (auto) 0 % 01/20/24 05:55 Nucleated RBCs # 0.0 /100WBC 01/20/24 05:55 Sodium 139 mmol/L (136-145) 01/20/24 05:55 Potassium 4.2 mmol/L (3.5-5.1) 01/20/24 05:55 Chloride 99 mmol/L (98-107) 01/20/24 05:55 Carbon Dioxide 28 mmol/L (22-29) 01/20/24 05:55 Anion Gap 16.2 (5-19) 01/20/24 05:55 BUN 36 mg/dL (8-23) H 01/20/24 05:55 Creatinine 1.3 mg/dL (0.7-1.2) H 01/20/24 05:55 GFR Calculation Not Reportable 01/20/24 05:55 Glucose 137 mg/dL (65-115) H 01/20/24 05:55 POC Glucose 111 mg/dL (70-110) H 01/18/24 07:35 Calculated Osmolality 298 mOsm/kg (285-295) H 01/20/24 05:55 Lactic Acid 1.1 mmol/L (0.5-2.2) 01/17/24 14:55 Calcium 9.1 mg/dL (8.5-10.5) 01/20/24 05:55 Magnesium 2.1 mg/dL (1.7-2.3) 01/20/24 05:55 Total Bilirubin 0.6 mg/dL (0.15-1.2) 01/18/24 05:11 AST 14 U/L (0-40) 01/18/24 05:11 ALT 7 U/L (0-41) 01/18/24 05:11 Alkaline Phosphatase 70 U/L (40-130) 01/18/24 05:11 Troponin T Baseline 30 ng/L (0-15) H 01/17/24 09:13 Troponin T 120 Minute 30.25 ng/L (0-15) H 01/17/24 11:34 Delta Troponin T 0.25 ABS# (0-10) 01/17/24 11:34 Troponin T Hi Sens 6Hr 32.47 ng/L (0-15) H 01/17/24 14:55 Troponin T Hi Sens 6Hr Delta 2.47 ng/L (0-12) 01/17/24 14:55 NT-Pro-B Natriuret Pep 2076 pg/mL (0-450) H 01/17/24 09:13 Total Protein 6.8 g/dL (6.6-8.7) 01/18/24 05:11 Albumin 3.6 g/dL (3.5-5.2) 01/18/24 05:11 Globulin 3.2 g/dL (1.3-4.6) 01/18/24 05:11 Lipase 23 U/L (13-60) 01/17/24 09:13 Procalcitonin 0.09 ng/mL (0-0.5) 01/17/24 09:13 Vitals Last Vital Signs Temp 97.7 F 01/20/24 07:59 Pulse 73 01/20/24 07:59 Resp 16 01/20/24 07:59 BP 137/70 01/20/24 07:59 Pulse Ox 94 01/20/24 07:59 O2 Del Method Nasal Cannula 01/20/24 07:59 O2 Flow Rate 2 01/20/24 07:44 Discharge Plan Discharge Patient Disposition: Home Condition: Stable Prescriptions: New potassium chloride [Klor-Con M20] 20 mEq Tablet,Er Particles/Crystals 20 meq PO DAILY Qty: 30 0RF levofloxacin 750 mg tablet 750 mg PO DAILY 4 Days Qty: 4 0RF furosemide [Lasix] 40 mg tablet 40 mg PO QAM Qty: 30 0RF Continued Ultra CoQ10 75 mg capsule 75 mg PO DAILY multivitamin Tablet 1 tab PO DAILY amlodipine 10 mg tablet 10 mg PO DAILY Qty: 30 1RF ondansetron 4 mg tablet,disintegrating 4 mg PO Q6H PRN (Reason: nausea and vomiting) Qty: 14 0RF diclofenac sodium 1 % Gel See Rx Instructions .ROUTE .COMPLEX PRN (Reason: arthritis) Rx Instructions: apply 2 g topically as needed ;apply to single elbow, wrist or hand; for hand includes palm/fingers/back of hand carvedilol 3.125 mg tablet 3.125 mg PO BID Discharge Orders: Discharge Order (Routine); Ordered 01/20/24 Ordered By: Deanna Reynolds Referrals: Candido Morales M.D [Physician] - 7-10 days (We have notified your physician's clinic of the need for a follow-up appointment to be scheduled. If you have not heard from them within the next 2 business days, please call them directly. ) Nick Bello MD [Primary Care Provider] - 02/08/24 9:30 am Discharge Diet: Cardiac Discharge Activity: Resume usual activity Patient Instructions: Furosemide (By mouth), Prednisone (By mouth), Potassium Chloride (By mouth), Levofloxacin (By mouth) (Levaquin, Levaquin Leva-mary), CHF Stoplight, Opioid Safety Discharge Attestations Time Spent in Discharge Care*: greater than 30 min Quality Metrics Clinical Quality Measures [ No reported AMI, CVA or VTE this stay] Coding Level of Care Code Acute Code for Chg Fwd Diagnoses Essential hypertension I10 Hypertension type: essential hypertension Nonrheumatic mitral valve regurgitation I34.0 Cardiac valve disease etiology: nonrheumatic Mixed hyperlipidemia E78.2 Hyperlipidemia type: mixed hyperlipidemia Prediabetes R73.03 CKD (chronic kidney disease) N18.9 Heart failure I50.9
--- NOTE | 2024-01-20 12:04 | PC.SOCIAL ---
IMM Update Pg. 2 of IMM updated. Initialed, dated, and timed, copy provided at bedside.
--- NOTE | 2024-01-20 13:26 | PC.NURSE ---
Discharge instructions provided to pt and his . NO questions or concerns voiced at this time. Pt to private vehicle via wheelchair with all belongings.
== END 2024-01-20 13:29 | disposition home or self-care (01) | DRG 291 ==
LOC: ER 09:11 → ICU 10:45 → MEDSURG 01-19 18:27
PROVIDERS: Admitting Provider Internal Medicine; Emergency Provider Family Medicine; PCP Family Medicine; Visit Provider Internal Medicine
DX: I13.0 Hypertensive heart and chronic kidney disease with heart failure and stage 1 through stage 4 chronic kidney disease, or unspecified chronic kidney disease (principal); I50.33 Acute on chronic diastolic (congestive) heart failure; J18.9 Pneumonia, unspecified organism; I47.10 Supraventricular tachycardia, unspecified; N18.9 Chronic kidney disease, unspecified; E78.2 Mixed hyperlipidemia; I34.0 Nonrheumatic mitral (valve) insufficiency; R73.03 Prediabetes; G89.29 Other chronic pain; M54.9 Dorsalgia, unspecified; R09.02 Hypoxemia; I87.8 Other specified disorders of veins
CPT/HCPCS: 36415; 36416; 36600; 71045; 80048; 80053; 82962; 83605; 83690; 83735; 83880; 84145; 84484; 85025; 87070; 87205; 93005; 93306; 94664; 94760; 96372; 96374; 96376; 97116; 97161; 97530; 99285; J0696; J1644; J1940; J2919; Q0144

== ENCOUNTER → 2024-01-28 08:14 | Outpatient (BNVA) | payer MEDICARE, OTHER, SELFPAY | PROVIDERS: PCP Family Medicine; Visit Provider Nurse Practitioner Family | DX: I11.0 Hypertensive heart disease with heart failure (principal); I50.30 Unspecified diastolic (congestive) heart failure; I35.0 Nonrheumatic aortic (valve) stenosis; Z87.891 Personal history of nicotine dependence | CPT/HCPCS: 99214 ==

== ENCOUNTER → 2024-02-29 09:21 | Outpatient (BNVA) | payer MEDICARE, OTHER, SELFPAY | PROVIDERS: PCP Family Medicine; Visit Provider Nurse Practitioner Family | DX: I13.0 Hypertensive heart and chronic kidney disease with heart failure and stage 1 through stage 4 chronic kidney disease, or unspecified chronic kidney disease (principal); I50.30 Unspecified diastolic (congestive) heart failure; N18.9 Chronic kidney disease, unspecified; M79.89 Other specified soft tissue disorders; E78.2 Mixed hyperlipidemia; Z87.891 Personal history of nicotine dependence | CPT/HCPCS: 36415; 80053; 83880; 85025; 99214 ==

== ENCOUNTER 2024-03-08 13:19 | Outpatient (CLI) | payer MEDICARE, OTHER, SELFPAY ==
--- NOTE | 2024-03-08 13:45 | USR_ITS ---
PROCEDURE INFORMATION: Exam: US Duplex Lower Extremity Veins, Bilateral, Venous Insufficiency Exam date and time: 03/08/2024 1:50 PM Age: 88 years old Clinical indication: Swelling (edema) of limb; Lower extremity, bilateral; Additional info: Rule out venous insufficiency, please do a comprehensive venous reflux exam to rule out TECHNIQUE: Imaging protocol: Real-time duplex ultrasound of the extremities with 2-D powell scale, color Doppler flow and spectral waveform analysis including responses to compression and other maneuvers (when performed) with image documentation. Complete exam focused on the bilateral lower extremity veins for venous insufficiency. COMPARISON: CT abdomen pelvis w con* [id number] 01/16/2021 10:57 PM FINDINGS: Right deep veins: Unremarkable. The common femoral, femoral, proximal profunda femoral and popliteal veins are patent without thrombus. Normal Doppler waveforms. Normal compressibility and/or augmentation response. No evidence of venous reflux. Right superficial veins: Saphenofemoral junction and greater saphenous veins are patent without thrombus. No evidence of venous reflux. Left deep veins: Unremarkable. The common femoral, femoral, proximal profunda femoral and popliteal veins are patent without thrombus. Normal Doppler waveforms. Normal compressibility and/or augmentation response. No evidence of venous reflux. Left superficial veins: Saphenofemoral junction and greater saphenous veins are patent without thrombus. No evidence of venous reflux. Soft tissues: Unremarkable. US/CV aleena dup gaby [place] [id number] IMPRESSION: No evidence of deep vein thrombosis or venous reflux/insufficiency.
== END 2024-03-08 13:20 | disposition home or self-care (01) ==
LOC: RAD 13:19
PROVIDERS: PCP Family Medicine; Visit Provider Nurse Practitioner Family
DX: M79.89 Other specified soft tissue disorders (principal)
CPT/HCPCS: 93970

== ENCOUNTER 2024-03-14 09:59 | Outpatient (CLI) | payer MEDICARE, OTHER, SELFPAY ==
[2024-03-14 10:37] LABS: Blood Urea Nitrogen 29 mg/dL (8-23); Calcium 9.2 mg/dL (8.5-10.5); Carbon Dioxide 30 mmol/L (22-29); Chloride 98 mmol/L (98-107); Glucose 112 mg/dL (65-115); Osmolality Calculated 297 mOsm/kg (285-295); Sodium 140 mmol/L (136-145)
[2024-03-14 10:39] LABS: Anion Gap 15.9 (5-19); Potassium 3.9 mmol/L (3.5-5.1)
== END 2024-03-14 10:00 | disposition home or self-care (01) ==
LOC: LAB 10:02
PROVIDERS: PCP Family Medicine; Visit Provider Family Medicine
DX: I50.9 Heart failure, unspecified (principal)
CPT/HCPCS: 36415; 80048

== ENCOUNTER 2024-04-13 06:42 | Emergency (ER) | payer MEDICARE, OTHER, SELFPAY ==
[2024-04-13 06:51] VITALS: BP 150/63; PULSE 75; RESP 17; TEMP 36.4; O2SAT 92; BMI 34.7
--- NOTE | 2024-04-13 06:53 | XRR_ITS ---
PROCEDURE INFORMATION: Exam: XR Chest Exam date and time: 04/13/2024 6:56 AM Age: 88 years old Clinical indication: Shortness of breath; Additional info: SOB. No history of recent trauma or surgery is provided. TECHNIQUE: Imaging protocol: Radiologic exam of the chest. 1image(s) are provided. Views: 1 view. COMPARISON: 1. CR XR chest 1V portable [id number] 01/17/2024 9:26 AM 2. CR XR chest 1V portable [id number] 11/24/2023 8:18 AM 3. CR XR chest 2V* [id number] 04/12/2023 2:00 PM FINDINGS: Lungs: No lobar consolidation is appreciated.There is some subsegmental atelectasis versus post inflammatory scarring demonstrated. Basal aeration appears somewhat improved in the interval with decreased density overall. Pleural spaces: There is some slight costophrenic angle blunting, scarring similar overall.No pneumothorax is appreciated. Heart/Mediastinum: The cardiomediastinal silhouette is upper normal in size.No cardiac decompensation is appreciated. Diaphragm: The hemidiaphragms are symmetric. Bones/joints: No interval displaced fracture or dislocation is appreciated.There are some degenerative changes of the shoulders and spine overall present. There is slightly decreased bone mineralization overall. Soft tissues: No radiopaque foreign body or subcutaneous emphysema is appreciated. Other findings: No other significant interval changes are appreciated. XR/XR chest 1V portable [id number] IMPRESSION: Compared to the previous study there is some intervally improving central, basal aeration. No interval lobar consolidation or cardiac decompensation is appreciated.
--- NOTE | 2024-04-13 06:54 | ED_ITS ---
HPI - General Adult 2 General: Chief complaint: Extremity Problem,Nontraumatic Stated complaint: lt calf swelling Time Seen by Provider: 04/13/24 06:43 Source: patient Mode of arrival: ambulatory Limitations: no limitations History of Present Illness: 88-year-old male states he has been havi ng swelling to his lower extremities states he has some chronic edema does take diuretics but states he has had some increased swelling states is concerned he is having some erythema to his lower legs denies any warmth to touch denies any pain denies any injuries. He denies any shortness of breath or chest pain Associated symptoms: Deny chest pain, dyspnea, headache(s), nausea, rash or vomiting Related Data Previous Rx's ?Medication ?Instructions ?Recorded amlodipine 10 mg tablet 10 mg PO DAILY #90 tabs 01/09 11/02 carvedilol 3.125 mg tablet 3.125 mg PO BID #180 tabs 1 03/30/23 potassium chloride 20 mEq 20 meq PO DAILY #90 tabs tablet,extended release(part/cryst) (Klor-Con M) losartan 25 mg tablet 25 mg PO DAILY #90 tabs 02/10 04/05 metolazone 2.5 mg tablet 2.5 mg PO Q12H #60 tabs 03/13 09/02 torsemide 40 mg tablet 40 mg PO QDAY #30 tabs 04/07 Allergies Allergy/AdvReac Type Severity Reaction Status Date / Time No Known Allergies Allergy Verified 04/07/24 10:49 Review of Systems 2 Const: Denies: fever(s), chills, body aches or change in appetite ENMT: Denies: throat pain or dental pain Card: Denies: chest pain Resp: Denies: dyspnea GI: Denies: abdominal pain, nausea, vomiting or diarrhea Musc: Reports: extremity swelling; Denies: neck pain or back pain Skin/Breast: Denies: rash Neuro: Denies: headache(s) PFSH ED 2 PFSH: Medical History (Updated 04/13/24 @ 08:20 by Tamar Taylor MD) Heart failure with preserved ejection fraction Chronic back pain Lower GI bleed Prediabetes Mitral regurgitation H/O [place] spotted fever Hyperlipidemia Enrolled in chronic care management Hypertension Surgical History H/O cataract extraction No pertinent past surgical history Family History Other CAD (coronary artery disease) Cancer Social History Smoking and tobacco/nicotine status: former use of tobacco/nicotine (50 yrs ago ) Alcohol intake: current Alcohol intake frequency: few times a week Alcohol type: beer Substance/Drug Use: never Lives independently: Yes Household members: spouse Marital status: Current occupational status: retired Do you think of yourself as: Straight/Heterosexual Current gender identity: Male Physical Exam 2 Const: COMMON NORMALS: no acute distress, patient oriented x3 and healthy appearing HENMT: COMMON NORMALS: normocephalic and atraumatic HEAD & SCALP: n ormocephalic and atraumatic Eye: COMMON NORMALS: conjunctivae normal CONJUNCTIVA: Yes conjunctivae normal Neck/C-Spine: COMMON NORMALS: full ROM and supple Chest: COMMONS NORMALS: normal inspection of the chest Resp: COMMON NORMALS: normal respiratory effort, No retractions, No use of accessory muscles and clear to auscultation bilaterally AUSCULTATION: clear to auscultation bilaterally Cardio: COMMON NORMALS: regular rate, regular rhythm and No murmurs present (Cardio) RATE: regular rate RHYTHM: regular rhythm Extremity: NARRATIVE EXTREMITY EXAM: 2+ edema to lower extremities. Has some stasis dermatitis no warmth to touch no signs of cellulitis distal pulses intact Neuro: COMMON NORMALS: patient oriented x3, moves all extremities and no focal motor deficits Psych: COMMON NORMALS: mental status grossly normal, Normal thought process present and cooperative THOUGHT PROCESS: Normal thought process present Skin: COMMON NORMALS: no rashes or lesions noted and no wounds GENERAL SKIN EXAM: no rashes or lesions noted Course 2 Vital Signs: Vital signs: Vital Signs Temperature 97.6 F 04/13/24 06:51 Pulse Rate 75 04/13/24 06:51 Respiratory Rate 17 04/13/24 06:51 Blood Pressure 124/67 04/13/24 08:00 Pulse Oximetry 91 04/13/24 08:00 Oxygen Delivery Me thod Room Air 04/13/24 06:51 [facility] - General Adult Medical Decision Making Patient presents for lower extreme edema he has had good urine output after IV Lasix he has no dyspnea here no signs of cellulitis he is continue his diuretics compress his legs and elevate his legs. He stable for discharge he has to follow-up with PCP and return if worsening. Medical Records I reviewed the patient's medical records. Lab Data I reviewed the patient's lab results. 04/13/24 07:14 04/13/24 07:14 Radiology Impressions Chest X-Ray 04/13/24 06:53 IMPRESSION: Compared to the previous study there is some intervally improving central, basal aeration. No interval lobar consolidation or cardiac decompensation is appreciated. Laboratory Results WBC 7.30 10^3/uL (3.29-11.43) 04/13/24 07:14 RBC 5.13 10^6/uL (3.85-5.65) 04/13/24 07:14 Hgb 14.60 g/dL (11.27-16.99) 04/13/24 07:14 Hct 45.8 % (37-53) 04/13/24 07:14 MCV 89.3 fl (82-101) 04/13/24 07:14 MCH 28.5 pg (27-33) 04/13/24 07:14 MCHC 31.9 g/dL (30-55) 04/13/24 07:14 RDW 13.8 % (12.1-15.1) 04/13/24 07:14 Plt Count 191 10^3/cmm (157-399) 04/13/24 07:14 MPV 9.9 fL (7.4-10.4) 04/13/24 07:14 Neut % (Auto) 62.2 % 04/13/24 07:14 Lymph % (Auto) 23.0 % 04/13/24 07:14 [place] % (Auto) 11.9 % 04/13/24 07:14 Eos % (Auto) 2.1 % 04/13/24 07:14 Baso % (Auto) 0.7 % 04/13/24 07:14 Neut # (Auto) 4.54 10^3/uL (1.8-7.7) 04/13/24 07:14 Lymph # (Auto) 1.7 10^3/uL (0.8-4.8) 04/13/24 07:14 [place] # (Auto) 0.9 10^3/uL (0.2-0.9) 04/13/24 07:14 Eos # (Auto) 0.2 10^3/uL (0.0-0.8) 04/13/24 07:14 Baso # (Auto) 0.1 10^3/uL (0.0-0.1) 04/13/24 07:14 Nucleated RBC % (auto) 0 % 04/13/24 07:14 Nucleated RBCs # 0.0 /100WBC 04/13/24 07:14 Sodium 140 mmol/L (136-145) 04/13/24 07:14 Potassium 4.3 mmol/L (3.5-5.1) 04/13/24 07:14 Chloride 101 mmol/L (98-107) 04/13/24 07:14 Carbon Dioxide 26 mmol/L (22-29) 04/13/24 07:14 Anion Gap 17.3 (5-19) 04/13/24 07:14 BUN 35 mg/dL (8-23) H 04/13/24 07:14 Creatinine 1.7 mg/dL (0.7-1.2) H 04/13/24 07:14 GFR Calculation Not Reportable 04/13/24 07:14 Glucose 135 mg/dL (65-115) H 04/13/24 07:14 Calculated Osmolality 300 mOsm/kg (285-295) H 04/13/24 07:14 Calcium 9.2 mg/dL (8.5-10.5) 04/13/24 07:14 Total Bilirubin 0.3 mg/dL (0.15-1.2) 04/13/24 07:14 AST 16 U/L (0-40) 04/13/24 07:14 ALT 8 U/L (0-41) 04/13/24 07:14 Alkaline Phosphatase 63 U/L (40-130) 04/13/24 07:14 NT-Pro-B Natriuret Pep 810 pg/mL (0-450) H 04/13/24 07:14 Total Protein 6.9 g/dL (6.6-8.7) 04/13/24 07:14 Albumin 3.8 g/dL (3.5-5.2) 04/13/24 07:14 Globulin 3.1 g/dL (1.3-4.6) 04/13/24 07:14 All radiology interpretation(s) finalized by discharge Discharge Plan Discharge Patient Disposition: Home Clinical Impression: Lower extremity edema Condition: Stable Prescriptions: No Action amlodipine 10 mg tablet 10 mg PO DAILY Qty: 90 1RF carvedilol 3.125 mg tablet 3.125 mg PO BID Qty: 180 1RF torsemide 40 mg tablet 40 mg PO QDAY Qty: 30 1RF metolazone 2.5 mg tablet 2.5 mg PO Q12H Qty: 60 1RF potassium chloride [Klor-Con M20] 20 mEq tablet,ER particles/crystals 20 meq PO DAILY Qty: 90 1RF losartan 25 mg tablet 25 mg PO DAILY Qty: 90 2RF Discharge Orders: Discharge ED (Routine); Ordered 04/13/24 Ordered By: Tamar Taylor Referrals: Nick Bello MD [Primary Care Provider] - Discharge Diet: Advance as tolerated Discharge Activity: Resume usual activity Patient Instructions: Leg Edema (ED) Print Language: Tamazight Coding Level of Care Code ED Lead Level Designer for Yun Pope
[2024-04-13] MEDS: FUROsemide 10 mg/mL SDV 10mL 80 MG IVP (07:29)
[2024-04-13 07:30] VITALS: BP 138/65; O2SAT 88
[2024-04-13 07:32] LABS: Basophils # 0.1 10^3/uL (0.0-0.1); Basophils % 0.7 %; Eosinophils # 0.2 10^3/uL (0.0-0.8); Eosinophils % 2.1 %; Hematocrit 45.8 % (37-53); Lymphocytes # 1.7 10^3/uL (0.8-4.8); Mean Corpuscular HGB Conc 31.9 g/dL (30-55); Mean Corpuscular Hemoglobin 28.5 pg (27-33); Mean Corpuscular Volume 89.3 fl (82-101); Mean Platelet Volume 9.9 fL (7.4-10.4); Monocytes # 0.9 10^3/uL (0.2-0.9); Monocytes % 11.9 %; Neutrophils # 4.54 10^3/uL (1.8-7.7); Neutrophils % 62.2 %; Nucleated Red Blood Cells % 0 %; Platelet Count 191 10^3/cmm (157-399); Red Blood Count 5.13 10^6/uL (3.85-5.65); Red Cell Distribution Width 13.8 % (12.1-15.1)
[2024-04-13 07:48] LABS: Alanine Aminotransferase 8 U/L (0-41); Albumin Level 3.8 g/dL (3.5-5.2); Alkaline Phosphatase 63 U/L (40-130); Anion Gap 17.3 (5-19); Aspartate Amino Transferase 16 U/L (0-40); Blood Urea Nitrogen 35 mg/dL (8-23); Calcium 9.2 mg/dL (8.5-10.5); Carbon Dioxide 26 mmol/L (22-29); Chloride 101 mmol/L (98-107); Globulin 3.1 g/dL (1.3-4.6); Glucose 135 mg/dL (65-115); Osmolality Calculated 300 mOsm/kg (285-295); Potassium 4.3 mmol/L (3.5-5.1); Sodium 140 mmol/L (136-145); Total Bilirubin 0.3 mg/dL (0.15-1.2); Total Protein 6.9 g/dL (6.6-8.7)
[2024-04-13 07:49] LABS: NT Pro B Type Natriuretic Pept 810 pg/mL (0-450)
[2024-04-13 08:00] VITALS: BP 124/67; O2SAT 91
[2024-04-13 08:27] VITALS: BP 126/63; PULSE 74; O2SAT 91
== END 2024-04-13 08:29 | disposition home or self-care (01) ==
PROVIDERS: Emergency Provider Emergency Medicine; PCP Family Medicine
DX: R60.0 Localized edema (principal); Z87.891 Personal history of nicotine dependence; E78.5 Hyperlipidemia, unspecified; I10 Essential (primary) hypertension
CPT/HCPCS: 36415; 71045; 80053; 83880; 85025; 96374; 99284; J1940

== ENCOUNTER → 2024-06-09 13:45 | Outpatient (BNVA) | payer MEDICARE, OTHER, SELFPAY | PROVIDERS: PCP Family Medicine; Visit Provider Family Medicine | DX: N18.9 Chronic kidney disease, unspecified (principal) | CPT/HCPCS: 80048 ==